=== PATIENT | female | born 1930 | race Caucasian/White ===

== ENCOUNTER 2017-01-09 20:52 | Inpatient (IN) | payer OTHER ==
[~2017-01-09] VITALS: Ht 162.6 cm; Wt 72.6 kg
[~2017-01-09 20:52] MED LIST: ACET-3783 PO; ALEN70TA PO; AMLO5TAB PO; ASPI81TA28 PO; ATOR10TA PO; CALC-567 PO; CLOP75TA PO; CRAN450C PO; DEXT1CAP3 PO; DIT5 PO; DIVA250T PO; DOCU100C5 PO; DONE5TAB2 PO; GABA100C PO; HYDR-3638 PO; LEVO500T6 PO; LISI-420 PO; MAGN400T11 PO; MECL-272 PO; MULT-1398 PO; NITR0.4S14 SL; SACC250C4 PO; SERT50TA PO; VITA20002 PO
--- NOTE | 2017-01-09 20:52 | NUR ---
BIBA TO ER BED 4
--- NOTE | 2017-01-09 21:00 | NUR ---
Patient being evaluated by DR. SEO at bedside.
--- NOTE | 2017-01-09 21:01 | NUR ---
86Y/F PT. BIBA C/O DOUBLE VISION, SINCE YESTERDAY, S/P HIT HER HEAD ON THE EDGE OF THE BED , ON HER LEFT SIDE HEAD. HX. HTN, DEMENTIA, GERD. AAO X3, UNABLE TO AMBULATE AT THIS TIME. RESPIRATION ROOM AIR, EVEN AND UNLABORED. SKIN WARM AND DRY TO TOUCH. C/O DOUBLE VISION AND LT. EYELID HEAVY. VSS, NO S/SX OF DISTRESS AT THIS TIME. BED AT LOW POSITION. DR. SEO AT BEDSIDE EVALUATING PT.
[2017-01-09 21:02] VITALS: BP 126/68
[2017-01-09 21:37] LABS: BASOPHILS # (AUTO) 0.1 K/uL (0.00-0.22); EOSINOPHILS # (AUTO) 0.3 K/uL (0-0.4); EOSINOPHILS % (AUTO) 4.2 % (0.0-4.0); HEMATOCRIT 32.3 % (36-48); HEMOGLOBIN 10.6 g/dL (12.0-16.0); LYMPHOCYTES # (AUTO) 1.5 K/uL (2.5-16.5); LYMPHOCYTES % (AUTO) 24.9 % (20.5-51.1); MEAN CORPUSCULAR HEMOGLOBIN 31 pg (27-31); MEAN CORPUSCULAR HGB CONC 33 g/dL (33-37); MEAN CORPUSCULAR VOLUME 94 fL (80-94); MONOCYTES # (AUTO) 0.4 K/uL (0.8-1.0); MONOCYTES % (AUTO) 6.4 % (1.7-9.3); NEUTROPHILS # (AUTO) 3.9 K/uL (1.8-7.7); NEUTROPHILS % (AUTO) 63.5 % (42.2-75.2); PLATELET COUNT (AUTO) 200 K/uL (140-450); RED BLOOD CELL COUNT(AUTO) 3.44 MIL/uL (4.20-5.40); RED CELL DISTRIBUTION WIDTH 13.1 % (11.6-13.7); WHITE BLOOD COUNT (AUTO) 6.2 K/uL (4.8-10.8)
[2017-01-09 21:46] LABS: ANION GAP 9.5 (8-16); CALCIUM 9.4 mg/dL (8.5-10.1); CARBON DIOXIDE 31.3 mmol/L (21-32); CHLORIDE 104 mmol/L (98-107); CREATININE 1.5 mg/dL (0.6-1.3); GLUCOSE 161 mg/dL (74-106); POTASSIUM 4.8 mmol/L (3.5-5.1); SODIUM SERUM 140 mmol/L (136-145); UREA NITROGEN, BLOOD 27 mg/dL (7-18)
[2017-01-09 21:51] LABS: ALANINE AMINOTRANSFERASE 20 U/L (12-78); ALBUMIN 3.8 g/dL (3.4-5.0); ALKALINE PHOSPHATASE 68 U/L (46-116); ASPARTATE AMINOTRANSFERASE 21 U/L (15-37); TOTAL BILIRUBIN 0.3 mg/dL (0.0-1.0); TOTAL PROTEIN, SERUM 6.9 g/dL (6.4-8.2)
[2017-01-09 21:54] LABS: INR 1.1 (0.8-1.2); PARTIAL THROMBOPLASTIN TIME 24.2 secs (22-35.6)
[2017-01-09 21:59] LABS: FREE T4 (FREE THYROXINE) 0.73 ng/dL (0.76-1.46); THYROID STIMULATING HORMONE 0.74 uIU/mL (0.34-3.76)
--- NOTE | 2017-01-09 22:15 | NUR ---
TAKE PT. TO CT
[2017-01-09] MEDS ORDERED: MELO7.5T11 PO (22:40)
[2017-01-09] MEDS ORDERED: FERR325E14 PO (22:40)
[2017-01-09] MEDS ORDERED: LACT1CAP71 PO (22:40)
[2017-01-09] MEDS ORDERED: FURO-572 PO (22:40)
[2017-01-09] MEDS ORDERED: POTA8TER12 PO (22:40)
--- NOTE | 2017-01-09 22:40 | NUR ---
PT. BACK FROM CT
[2017-01-09] MEDS ORDERED: ASPIRIN 325 MG TAB PO ONE (22:45)
[2017-01-09 22:53] LABS: APPEARANCE,URINE CLOUDY (CLEAR); BILIRUBIN,URINE NEGATIVE (NEGATIVE); BLOOD, URINE NEGATIVE (NEGATIVE); COLOR,URINE YELLOW (YELLOW); LEUKOCYTE ESTERASE ,URINE 1+ (NEGATIVE); NITRITE, URINE POSITIVE (NEGATIVE); PROTEIN,URINE NEGATIVE (NEGATIVE); UGLUCOSE NEGATIVE (NEGATIVE); UROBILINOGEN,URINE 0.2 EU/dL (0.2 - 1)
[2017-01-09] MEDS ORDERED: cefTRIAXone 1,000 MG VIAL ONE (22:57)
[2017-01-09 23:12] LABS: BACTERIA,URINE 4+ /HPF (None Seen); RBC,URINE 0-5 (RARE) /HPF (0-5); SQUAMOUS EPITHELIAL CELL,UR None Seen /LPF (0-3 (FEW)); WHITE BLOOD CELL CASTS,URINE 0-3 /LPF (None Seen)
--- NOTE | 2017-01-09 23:18 | NUR ---
Note undone in EDM - 01/09/17 at 2321 by MEDSP 86Y/F PT. BIBA C/O DOUBLE VISION, SINCE YESTERDAY, S/P HIT HER HEAD ON THE EDGE OF THE BED , ON HER LEFT SIDE HEAD. HX. HTN, DEMENTIA, GERD. AAO X3, UNABLE TO AMBULATE AT THIS TIME. RESPIRATION ROOM AIR, EVEN AND UNLABORED. SKIN WARM AND DRY TO TOUCH. C/O DOUBLE VISION AND LT. EYELID HEAVY. VSS, NO S/SX OF DISTRESS AT THIS TIME. BED AT LOW POSITION. DR. SEO AT BEDSIDE EVALUATING PT.
--- NOTE | 2017-01-09 23:22 | NUR ---
Patient appears to be resting comfortably in bed. Vital Signs within normal limits. Respirations even and unlabored.
[2017-01-09] MEDS ORDERED: NACL 0.9% 1,000 ML IV SCH (23:26)
[2017-01-09 23:29] LABS: LACTIC ACID 1.1 mmol/L (0.4-2.0)
[2017-01-09] MEDS ORDERED: ONDANSETRON 4 MG/2 ML VIAL IM/IVP PRN (23:30)
[2017-01-09] MEDS ORDERED: ACETAMINOPHEN 325 MG TAB PO PRN (23:30)
[2017-01-09] MEDS ORDERED: HYDROcodone/APAP 7.5/325 MG 1 TAB PO PRN (23:30)
[2017-01-09] MEDS ORDERED: DOCUSATE SODIUM 100 MG GELCAP PO PRN (23:30)
[2017-01-09] MEDS ORDERED: MORPHINE SULFATE 2 MG/ML SYR IVP PRN (23:30)
--- NOTE | 2017-01-09 23:55 | NUR ---
Patient will be admitted to care of . Admited to TELEMETRY. Will go to [id number]. Belongings list completed. Report to ROBERT DIAS.
--- NOTE | 2017-01-10 00:10 | NUR ---
Admitted from ED, with chief complaint of DOUBLE VISION, 86 y/o ,Female, Awake, Alert, and Orientedx2-3, Cooperative. Granddaughter at bedside. Pt have bowel movement. Komal care rendered. Pt repositioned for comfort. Initial assessment done. Pt is hard of hearing. Vital signs checked. Pt oriented to call light, bed, phone,television, bathroom, smoking policy, visiting hours, procedures, ID bracelet on. Belongings list checked. Safety reinforced. MRSA swab collected. Bed alarm on.
[2017-01-10 00:20] VITALS: BP 139/71
[2017-01-10 00:37] LABS: CHOL/HDL RATIO 4.3 (1-4.5); MAGNESIUM 1.5 mg/dL (1.8-2.4); PHOSPHORUS 4.1 mg/dL (2.5-4.9)
[2017-01-10 04:00] VITALS: BP 124/67
--- NOTE | 2017-01-10 04:00 | NUR ---
AWAKEN PT. VITAL SIGNS CHECKED. PT DENIES ANY PAIN. PT SAID SHE NEEDS TO BE CHANGED. PT HAD GREENISH, LOOSE STOOL. PERICARE RENDERED. PT REPOSITIONED FOR COMFORT. CALL LIGHT W/IN REACH.
--- NOTE | 2017-01-10 05:15 | NUR ---
PT CALLED SAYING SHE NEEDS TO BE CHANGED. DUC CARE RENDERED. PT GOT UPSET FROM BEING CLEANED. EXPLAINED THAT SHE NEEDS TO BE CLEANED AND SHE'S THE ONE WHO CALLED TO BE CLEAN TOO. PT STATES " I'LL TELL MY DAUGHTER TO TAKE ME OUT HERE." ASKED PT HOW COME? PT STATES, " BECAUSE I CAME BECAUSE OF MY LEFT EYE AND THEN I KEEP ON URINATING SO MUCH." INFORMED HER THAT SHE HAS IVF GOING AND THAT SHE HAS UTI WELL. PT STILL UPSET. PT REASSURED THAT IT WILL GET BETTER BECAUSE SHE HAS IV ANTIBIOTIC NOW. PT REFUSED SEQUENTIALS ON. PT LEGS REMAIN ELEVATED OVER PILLOW. BED ALARM TURNED ON. CALL LIGHT W/IN REACH.
[2017-01-10] MEDS ORDERED: SODIUM PHOS / POTASSIUM PHOS 1 PKT PDR PO ONE (06:45)
--- NOTE | 2017-01-10 07:20 | NUR ---
BEDSIDE REPORT GIVEN TO DAYSHIFT NURSE.
--- NOTE | 2017-01-10 07:21 | NUR ---
RECEIVED REPORT OF PT FROM UNIX ENGINEER NURSE AT BEDSIDE. PT IS A&OX3. PT REFUSED VS AT THIS TIME. PT STATED THAT SHE WANTS TO GO HOME. PT HAS IV ON L AC 18 G RUNNING NS @ 60ML/HR. CALL LIGHT WITHIN REACH. WILL CONTINUE TO MONITOR.
[2017-01-10] MEDS: NACL 0.9% 1,000 ML IV SCH ×2 (08:11→16:38)
[2017-01-10] MEDS ORDERED: MORPHINE SULFATE 2 MG/ML SYR IVP PRN (08:15)
[2017-01-10] MEDS ORDERED: HYDROcodone/APAP 7.5/325 MG 1 TAB PO PRN (08:15)
[2017-01-10] MEDS ORDERED: DOCUSATE SODIUM 100 MG GELCAP PO PRN (08:15)
[2017-01-10] MEDS ORDERED: ACETAMINOPHEN 325 MG TAB PO PRN (08:15)
[2017-01-10] MEDS ORDERED: ONDANSETRON 4 MG/2 ML VIAL IM/IVP PRN (08:15)
--- NOTE | 2017-01-10 08:34 | NUR ---
PATIENT HAS BEEN SCREENED AND CATEGORIZED MODERATE NUTRITION RISK. PATIENT WILL BE SEEN WITHIN 3-5 DAYS OF ADMISSION. 01/12/17-01/14/[address]
[2017-01-10] MEDS ORDERED: LACTOBACILLUS RHAMNOSUS GG 1 EACH CAP PO SCH (09:00)
[2017-01-10] MEDS: LACTOBACILLUS RHAMNOSUS GG 1 EACH CAP PO SCH (09:17)
--- NOTE | 2017-01-10 09:30 | NUR ---
PT VOIDED AND HAD A SMALL LOOSE BM IN BED. CLEANED AND CHANGED PT. PT TOLERATED WELL. PT REFUSED ALL MEDS. WILL REPORT TO DR. PT CALLED DAUGHTER ON THE PHONE. CALL LIGHT WITHIN REACH. WILL CONTINUE TO MONITOR.
--- NOTE | 2017-01-10 11:30 | NUR ---
DR EXAMINED PT IN ROOM AND EXPLAINED PLAN OF CARE TO FAMILY.
[2017-01-10 11:56] LABS: ANION GAP 12.4 (8-16); BASOPHILS # (AUTO) 0.1 K/uL (0.00-0.22); BASOPHILS % (AUTO) 1.6 % (0.0-2.0); CALCIUM 9.7 mg/dL (8.5-10.1); CARBON DIOXIDE 28.4 mmol/L (21-32); CHLORIDE 106 mmol/L (98-107); CREATININE 1.2 mg/dL (0.6-1.3); EOSINOPHILS # (AUTO) 0.2 K/uL (0-0.4); EOSINOPHILS % (AUTO) 2.7 % (0.0-4.0); GLUCOSE 134 mg/dL (74-106); HEMATOCRIT 37.1 % (36-48); HEMOGLOBIN 12.3 g/dL (12.0-16.0); LYMPHOCYTES # (AUTO) 1.2 K/uL (2.5-16.5); LYMPHOCYTES % (AUTO) 16.1 % (20.5-51.1); MEAN CORPUSCULAR HEMOGLOBIN 31 pg (27-31); MEAN CORPUSCULAR HGB CONC 33 g/dL (33-37); MEAN CORPUSCULAR VOLUME 94 fL (80-94); MONOCYTES # (AUTO) 0.3 K/uL (0.8-1.0); MONOCYTES % (AUTO) 4.3 % (1.7-9.3); NEUTROPHILS # (AUTO) 5.7 K/uL (1.8-7.7); NEUTROPHILS % (AUTO) 75.3 % (42.2-75.2); PLATELET COUNT (AUTO) 211 K/uL (140-450); POTASSIUM 4.8 mmol/L (3.5-5.1); RED BLOOD CELL COUNT(AUTO) 3.96 MIL/uL (4.20-5.40); RED CELL DISTRIBUTION WIDTH 13.3 % (11.6-13.7); SODIUM SERUM 142 mmol/L (136-145); UREA NITROGEN, BLOOD 22 mg/dL (7-18); WHITE BLOOD COUNT (AUTO) 7.5 K/uL (4.8-10.8)
[2017-01-10 12:00] VITALS: BP 152/80
[2017-01-10 12:01] LABS: INR 1.1 (0.8-1.2); PARTIAL THROMBOPLASTIN TIME 25.8 secs (22-35.6); PROTHROMBIN TIME 11.2 secs (10.8-13.4)
[2017-01-10] MEDS ORDERED: NON-FORMULARY ITEM (Oxycodone HCl/Acetaminophen (Percocet 10-325 mg Tablet) 1 TAB) PO PRN (12:10)
[2017-01-10] MEDS ORDERED: MECLIZINE 25 MG TAB PO PRN (12:10)
[2017-01-10] MEDS ORDERED: NITROGLYCERIN 0.4 MG SL PRN (12:10)
[2017-01-10 12:13] LABS: CHOL/HDL RATIO 3.9 (1-4.5); FREE T4 (FREE THYROXINE) 0.76 ng/dL (0.76-1.46); MAGNESIUM 1.6 mg/dL (1.8-2.4); PHOSPHORUS 3.6 mg/dL (2.5-4.9); THYROID STIMULATING HORMONE 0.65 uIU/mL (0.34-3.76)
[2017-01-10] MEDS ORDERED: NITROGLYCERIN 0.4 MG TAB SL PRN (12:35)
[2017-01-10] MEDS ORDERED: oxyCODONE/APAP 5/325 MG 1 TAB TAB PO PRN (13:25)
--- NOTE | 2017-01-10 13:30 | NUR ---
U/S TECH AT BEDSIDE PERFORMING U/S.
[2017-01-10] MEDS: GABAPENTIN 100 MG CAP PO SCH ×2 (13:59→16:37)
[2017-01-10] MEDS: hydrALAZINE 25 MG TAB PO SCH (13:59)
--- NOTE | 2017-01-10 15:48 | NUR ---
PT VOIDED. CLEANED AND CHANGED PT. PT TOLERATED WELL. CALL LIGHT WITHIN REACH. WILL CONTINUE TO MONITOR.
[2017-01-10 16:00] VITALS: BP 156/78
[2017-01-10] MEDS ORDERED: NON-FORMULARY ITEM (Saccharomyces Boulardii* (Florastor*) 250 MG) PO SCH (17:00)
--- NOTE | 2017-01-10 17:10 | NUR ---
SPOKE TO DR. FRAGOSO REGARDING PT'S MAG LEVEL OF 1.6.
[2017-01-10] MEDS ORDERED: MAGNESIUM OXIDE 400 MG TAB PO SCH (17:30)
--- NOTE | 2017-01-10 19:18 | NUR ---
ENDORSED PT TO SALVAGE INSPECTOR WOOD PARTS NURSE AT BEDSIDE. PT IN STABLE CONDITION.
--- NOTE | 2017-01-10 19:35 | NUR ---
RECEIVED REPORT FROM DAY SHIFT RN AT BEDSIDE. INITIAL ASSESSMENT COMPLETED. PT AAO3; CONFUSED AT TIMES. PT HAS IV ON LEFT FOREARM G 18; INFUSING FLUIDS WELL. PT HAS RIGHT THIGH RASH. PT HAS SCDS. PT ON ROOM AIR. SAFETY/FALL RISK MEASURES IN PLACE. BED ALARM ON. WILL CONTINUE TO MONITOR PT.
[2017-01-10 20:00] VITALS: BP 148/84
[2017-01-10] MEDS ORDERED: LISINOPRIL 20 MG TAB PO SCH (21:00)
[2017-01-10] MEDS ORDERED: NON-FORMULARY ITEM (Divalproex Sodium* (Depakote Er (Extended Release)*) 250 MG) PO SCH (21:00)
[2017-01-10] MEDS ORDERED: NON-FORMULARY ITEM (Dextromethorphan HBr/Quinidine (Nuedexta 20-10 mg Capsule) 1 CAP) PO SCH (21:00)
[2017-01-10] MEDS: DIVALPROEX 250 MG TABEC PO SCH (22:05)
[2017-01-10] MEDS: CLOPIDOGREL 75 MG TAB PO SCH (22:06)
[2017-01-10] MEDS: DONEPEZIL 10 MG TAB PO SCH (22:06)
[2017-01-10] MEDS: ATORVASTATIN 20 MG TAB PO SCH (22:07)
[2017-01-10] MEDS: FERROUS SULFATE 325 MG TABEC PO SCH (22:07)
[2017-01-10] MEDS: CELECOXIB 100 MG CAP PO SCH (22:07)
--- NOTE | 2017-01-10 22:19 | NUR ---
PT TOLERATED 2100 MEDS WELL. WILL CONTINUE TO MONITOR PT.
--- NOTE | 2017-01-10 23:24 | NUR ---
PT HAD A BM, PT CLEANED AND REPOSITIONED. LINEN CHANGED, PT STABLE AT THIS TIME. WILL CONTINUE TO MONITOR PT.
[2017-01-11] VITALS: BP 124/81
--- NOTE | 2017-01-11 02:13 | NUR ---
IV PUMP ALARMING, FLUSHED AND INFUSING FLUIDS WELL. PT STABLE, NO SIGNS OF DISTRESS NOTED. WILL CONTINUE TO MONITOR PT.
[2017-01-11 04:00] VITALS: BP 145/82
--- NOTE | 2017-01-11 04:05 | NUR ---
PT WAS WET. PT CLEANED, LINEN AND GOWN CHANGED. PT TOLERATED IT WELL. BED ALARM ON. WILL CONTINUE TO MONITOR PT.
--- NOTE | 2017-01-11 06:05 | NUR ---
PT ASKING FOR A BLANKET. SHE STATES SHE IS COLD, WILL PROVIDE HER WITH A BLANKET.
[2017-01-11 06:36] LABS: BASOPHILS % (AUTO) 0.5 % (0.0-2.0); EOSINOPHILS # (AUTO) 0.2 K/uL (0-0.4); EOSINOPHILS % (AUTO) 1.8 % (0.0-4.0); HEMATOCRIT 34.6 % (36-48); HEMOGLOBIN 11.5 g/dL (12.0-16.0); LYMPHOCYTES # (AUTO) 1.5 K/uL (2.5-16.5); LYMPHOCYTES % (AUTO) 18.2 % (20.5-51.1); MEAN CORPUSCULAR HEMOGLOBIN 31 pg (27-31); MEAN CORPUSCULAR HGB CONC 33 g/dL (33-37); MEAN CORPUSCULAR VOLUME 94 fL (80-94); MONOCYTES # (AUTO) 0.5 K/uL (0.8-1.0); MONOCYTES % (AUTO) 5.7 % (1.7-9.3); NEUTROPHILS # (AUTO) 6.3 K/uL (1.8-7.7); NEUTROPHILS % (AUTO) 73.8 % (42.2-75.2); PLATELET COUNT (AUTO) 204 K/uL (140-450); RED CELL DISTRIBUTION WIDTH 12.8 % (11.6-13.7); WHITE BLOOD COUNT (AUTO) 8.5 K/uL (4.8-10.8)
[2017-01-11 06:51] LABS: ANION GAP 12.9 (8-16); CALCIUM 9.7 mg/dL (8.5-10.1); CARBON DIOXIDE 26.2 mmol/L (21-32); CHLORIDE 107 mmol/L (98-107); CREATININE 1.1 mg/dL (0.6-1.3); GLUCOSE 135 mg/dL (74-106); POTASSIUM 4.1 mmol/L (3.5-5.1); SODIUM SERUM 142 mmol/L (136-145); UREA NITROGEN, BLOOD 19 mg/dL (7-18)
[2017-01-11 06:52] LABS: MAGNESIUM 1.6 mg/dL (1.8-2.4); PHOSPHORUS 2.7 mg/dL (2.5-4.9)
--- NOTE | 2017-01-11 07:35 | NUR ---
ENDORSED PLAN OF CARE TO DAY SHIFT NURSE, PT IN STABLE CONDITION.
[2017-01-11 08:00] VITALS: BP 156/73
[2017-01-11] MEDS: CHOLECALCIFEROL 1,000 IU TAB PO SCH (08:26)
[2017-01-11] MEDS: DIVALPROEX 250 MG TABEC PO SCH ×2 (08:26→21:17)
[2017-01-11] MEDS: ECOTRIN 81 MG TABEC PO SCH (08:27)
[2017-01-11] MEDS: OXYBUTYNIN 5 MG TAB PO SCH ×2 (08:27→21:19)
[2017-01-11] MEDS: MULTIVITAMIN 1 TAB PO SCH (08:27)
[2017-01-11] MEDS: amLODIPine 5 MG TAB PO SCH (08:27)
[2017-01-11] MEDS: CELECOXIB 100 MG CAP PO SCH ×2 (08:27→21:18)
[2017-01-11] MEDS: MAGNESIUM OXIDE 400 MG TAB PO SCH (08:28)
[2017-01-11] MEDS: SERTRALINE 50 MG TAB PO SCH (08:28)
[2017-01-11] MEDS: GABAPENTIN 100 MG CAP PO SCH ×3 (08:28→16:37)
[2017-01-11] MEDS: CALCIUM CARB/VIT-D 500 MG/200 IU 1 TAB PO SCH (08:28)
[2017-01-11] MEDS: FERROUS SULFATE 325 MG TABEC PO SCH ×2 (08:28→21:18)
[2017-01-11] MEDS: FUROSEMIDE 20 MG TAB PO SCH (08:29)
[2017-01-11] MEDS: LACTOBACILLUS RHAMNOSUS GG 1 EACH CAP PO SCH (08:29)
[2017-01-11] MEDS ORDERED: NON-FORMULARY ITEM (Calcium Carbonate/Vitamin D3 (Oyster Shell Calcium-Vit D Tab) 1 TAB) PO SCH (09:00)
[2017-01-11] MEDS ORDERED: NON-FORMULARY ITEM (Cholecalciferol (Vitamin D3) (Vitamin D3) 2,000 IU) PO SCH (09:00)
[2017-01-11] MEDS ORDERED: LACTOBACILLUS COMBINATION NO 4 PO SCH (09:00)
[2017-01-11] MEDS ORDERED: NON-FORMULARY ITEM (Meloxicam* (Mobic*) 1 TAB) PO SCH (09:00)
[2017-01-11] MEDS ORDERED: NON-FORMULARY ITEM (Cranberry Fruit Concentrate (Cranberry) 450 MG) PO SCH (09:00)
[2017-01-11] MEDS ORDERED: POTASSIUM CHLORIDE 8 MEQ TABER PO SCH (09:00)
[2017-01-11] MEDS ORDERED: [UNRECOGNIZED DRUG - OTHER] PO SCH (09:00)
[2017-01-11] MEDS ORDERED: OXYBUTYNIN 5 MG TAB PO SCH (09:00)
--- NOTE | 2017-01-11 10:19 | NUR ---
TALKED TO DR REGARDING PT'S FREQUENT VOID AND BM, AND BLANCHABLE RED SACRAL AREA AND LOW MAG LEVEL OF 1.6. DR WILL PUT IN ORDERS.
[2017-01-11] MEDS ORDERED: Z-GUARD PASTE TP ONE (11:25)
--- NOTE | 2017-01-11 11:49 | NUR ---
FAMILY AT BEDSIDE. PT IS SITTING UP IN BED. NO COMPLAINTS. CALL LIGHT WITHIN REACH. WILL CONTINUE TO MONITOR.
[2017-01-11 12:00] VITALS: BP 144/87
[2017-01-11] MEDS ORDERED: MAG SULF 2000 MG/WATER PREMIX 50 ML IV SCH (12:00)
[2017-01-11] MEDS: hydrALAZINE 25 MG TAB PO SCH (12:09)
--- NOTE | 2017-01-11 13:00 | NUR ---
PT SAT UP IN BED TO EAT. FED HERSELF. TOLERATED WELL. CALL LIGHT WITHIN REACH. WILL CONTINUE TO MONITOR.
--- NOTE | 2017-01-11 14:00 | NUR ---
PT IS SLEEPING IN BED. NO DISTRESS NOTED. CALL LIGHT WITHIN REACH. WILL CONTINUE TO MONITOR.
[2017-01-11] MEDS: Z-GUARD PASTE TP SCH ×2 (14:58→16:52)
[2017-01-11 16:00] VITALS: BP 156/69
--- NOTE | 2017-01-11 16:30 | NUR ---
PT VOIDED AND HAD BM IN BED. CLEANED AND CHANGED AND REPOSITIONED PT. PT TOLERATED WELL. CALL LIGHT WITHIN REACH. WILL CONTINUE TO MONITOR.
--- NOTE | 2017-01-11 17:30 | NUR ---
HELPED PT MAKE PHONE CALL TO DAUGHTER.
[2017-01-11] MEDS: NACL 0.9% 1,000 ML IV SCH (17:31)
--- NOTE | 2017-01-11 18:20 | NUR ---
PT SAT UP IN BED AND ATE DINNER. TOLERATED WELL. CALL LIGHT WITHIN REACH. WILL CONTINUE TO MONITOR.
--- NOTE | 2017-01-11 18:48 | NUR ---
U/S TECH AT BEDSIDE PERFORMING ECHO. PT TOLERATING WELL. WILL CONTINUE TO MONITOR.
--- NOTE | 2017-01-11 19:25 | NUR ---
ENDORSED CARE OF PT TO ANIMAL SCIENCE INSTRUCTOR NURSE AT BEDSIDE. PT IN STABLE CONDITION.
--- NOTE | 2017-01-11 19:30 | NUR ---
RECEIVED REPORT FROM LAN JONES AT BEDSIDE. PT IS ALERT, AWAKE ORIENTED X3 WITH PERIOD OF CONFUSION. INITIAL ASSESSMENT DONE. NO S/S OF RESPIRATORY DISTRESS OR SOB NOTED. NO C/O PAIN OR ANY DISCOMFORT AT THIS TIME. PLAN OF CARE REVIEWED TO PT AND VERBALIZED UNDERSTANDING AND NEED TO BE REINFORCED. CALL LIGHT WITHIN REACH. WILL CONTINUE TO MONITOR.
[2017-01-11 20:00] VITALS: BP 146/83
--- NOTE | 2017-01-11 20:30 | NUR ---
PLAN OF CARE ENDORSED TO PJ FOR CONTINUITY OF CARE
[2017-01-11] MEDS: ATORVASTATIN 20 MG TAB PO SCH (21:18)
[2017-01-11] MEDS: CLOPIDOGREL 75 MG TAB PO SCH (21:18)
[2017-01-11] MEDS: DONEPEZIL 10 MG TAB PO SCH (21:19)
[2017-01-11] MEDS: LISINOPRIL 20 MG TAB PO SCH (21:19)
--- NOTE | 2017-01-11 22:34 | NUR ---
PT. ASSISTED TO BEDPAN USE. PT. ABLE TO TURN SIDE TO SIDE. ABLE TO VERBALIZE NEEDS WELL. NO SOB. DENIES PAIN AT THIS TIME. CALL LIGHT WITH IN REACH. KEPT CLEAN, COMFORTABLE AND DRY. TELEMETRY MONITORING.
[2017-01-12 00:39] VITALS: BP 141/73
--- NOTE | 2017-01-12 00:54 | NUR ---
PT. CHANGED RT WET WITH URINE. CLEANED UP AND CHANGED BEDDINGS. DENIES PAIN. VERBALIZES NEEDS WELL. TELEMETRY MONITORING. ABLE TO USE CALL LIGHT FOR HELP.
--- NOTE | 2017-01-12 03:00 | NUR ---
PT. SLEEPING WELL. NEW IVF SITE INSERTED TO RIGHT HAND #24 RT OLD IVF SITE INFILTRATED. GOOD BLOOD RETURN. NEEDS ANTICIPATED AND MET. CALL LIGHT WITH IN REACH.
[2017-01-12 03:38] VITALS: BP 141/73
--- NOTE | 2017-01-12 05:42 | NUR ---
PT. NEEDS ATTENDED TO AND MET. TOTAL CARE. INCONTINENT. PT. ABLE TO VERBALIZE NEEDS WELL. ABLE TO USE CALL LIGHT FOR HELP. WITH FORGETFULNESS AT TIMES.
[2017-01-12 06:02] LABS: BASOPHILS # (AUTO) 0.1 K/uL (0.00-0.22); BASOPHILS % (AUTO) 1.2 % (0.0-2.0); EOSINOPHILS # (AUTO) 0.2 K/uL (0-0.4); EOSINOPHILS % (AUTO) 2.6 % (0.0-4.0); HEMATOCRIT 35.2 % (36-48); HEMOGLOBIN 11.5 g/dL (12.0-16.0); LYMPHOCYTES # (AUTO) 1.8 K/uL (2.5-16.5); LYMPHOCYTES % (AUTO) 19.5 % (20.5-51.1); MEAN CORPUSCULAR HEMOGLOBIN 31 pg (27-31); MEAN CORPUSCULAR HGB CONC 33 g/dL (33-37); MEAN CORPUSCULAR VOLUME 94 fL (80-94); MONOCYTES # (AUTO) 0.6 K/uL (0.8-1.0); MONOCYTES % (AUTO) 6.3 % (1.7-9.3); NEUTROPHILS # (AUTO) 6.3 K/uL (1.8-7.7); NEUTROPHILS % (AUTO) 70.4 % (42.2-75.2); PLATELET COUNT (AUTO) 215 K/uL (140-450); RED BLOOD CELL COUNT(AUTO) 3.74 MIL/uL (4.20-5.40)
[2017-01-12 06:34] LABS: ANION GAP 12.4 (8-16); CALCIUM 9.5 mg/dL (8.5-10.1); CARBON DIOXIDE 27.5 mmol/L (21-32); CHLORIDE 105 mmol/L (98-107); GLUCOSE 131 mg/dL (74-106); POTASSIUM 3.9 mmol/L (3.5-5.1); SODIUM SERUM 141 mmol/L (136-145); UREA NITROGEN, BLOOD 20 mg/dL (7-18)
[2017-01-12 06:35] LABS: MAGNESIUM 1.8 mg/dL (1.8-2.4)
--- NOTE | 2017-01-12 07:20 | NUR ---
RECEIVED PT FROM IT SOFTWARE ENGINEER NURSE AT BEDSIDE. PT IS A&OX3. PT HAS IV ON L HAND 24 G RUNNING NS@60ML/HR. SCDS ON. NO OTHER COMPLAINTS AT THIS TIME. CALL LIGHT WITHIN REACH. WILL CONTINUE TO MONITOR.
[2017-01-12 08:00] VITALS: BP 148/67
[2017-01-12] MEDS: CHOLECALCIFEROL 1,000 IU TAB PO SCH (08:12)
[2017-01-12] MEDS: MULTIVITAMIN 1 TAB PO SCH (08:12)
[2017-01-12] MEDS: LACTOBACILLUS RHAMNOSUS GG 1 EACH CAP PO SCH (08:12)
[2017-01-12] MEDS: FERROUS SULFATE 325 MG TABEC PO SCH ×2 (08:12→21:13)
[2017-01-12] MEDS: LISINOPRIL 20 MG TAB PO SCH ×2 (08:13→21:13)
[2017-01-12] MEDS: GABAPENTIN 100 MG CAP PO SCH ×3 (08:13→16:48)
[2017-01-12] MEDS: DIVALPROEX 250 MG TABEC PO SCH ×2 (08:13→21:14)
[2017-01-12] MEDS: CALCIUM CARB/VIT-D 500 MG/200 IU 1 TAB PO SCH (08:13)
[2017-01-12] MEDS: MAGNESIUM OXIDE 400 MG TAB PO SCH (08:13)
[2017-01-12] MEDS: amLODIPine 5 MG TAB PO SCH (08:14)
[2017-01-12] MEDS: ECOTRIN 81 MG TABEC PO SCH (08:14)
[2017-01-12] MEDS: FUROSEMIDE 20 MG TAB PO SCH (08:14)
[2017-01-12] MEDS: SERTRALINE 50 MG TAB PO SCH (08:14)
[2017-01-12] MEDS: CELECOXIB 100 MG CAP PO SCH ×2 (08:14→21:14)
[2017-01-12] MEDS: OXYBUTYNIN 5 MG TAB PO SCH ×2 (08:14→21:14)
--- NOTE | 2017-01-12 09:00 | NUR ---
PT HAD BM ON BEDPAN AND VOIDED. CLEANED AND CHANGED PT. REPOSITIONED PT. PT TOLERATED WELL. CALL LIGHT WITHIN REACH. WILL CONTINUE TO MONITOR.
[2017-01-12] MEDS: Z-GUARD PASTE TP SCH ×3 (09:25→17:07)
[2017-01-12] MEDS: NACL 0.9% 1,000 ML IV SCH (10:11)
--- NOTE | 2017-01-12 10:24 | NUR ---
Social Service Note: Per patient's nurse RN Edinson Hernandez, she was informed by patient will not be discharged today. I faxed patient's medical information to [facility].
--- NOTE | 2017-01-12 11:20 | NUR ---
PT IS RESTING IN BED. NO COMPLAINTS AT THIS TIME. CALL LIGHT WITHIN REACH. WILL CONTINUE TO MONITOR.
[2017-01-12 12:00] VITALS: BP 130/80
[2017-01-12] MEDS: hydrALAZINE 25 MG TAB PO SCH (12:42)
--- NOTE | 2017-01-12 13:24 | NUR ---
Social Service Note: I received a phone call from patient's daughter Erna. Per Erna, she would like patient to return to [facility] once patient is medically clear.
--- NOTE | 2017-01-12 13:40 | NUR ---
STUDENT NURSE CHATTING WITH PT IN ROOM. PT HAS NO COMPLAINTS AT THIS TIME. CALL LIGHT WITHIN REACH. WILL CONTINUE TO MONITOR.
--- NOTE | 2017-01-12 14:50 | NUR ---
ANSWERED DAUGHTER'S QUESTIONS. DAUGHTER AND GRANDDAUGHTER AT BEDSIDE. NO COMPLAINTS AT THIS TIME. CALL LIGHT WITHIN REACH. WILL CONTINUE TO MONITOR.
[2017-01-12 16:00] VITALS: BP 152/81
--- NOTE | 2017-01-12 16:50 | NUR ---
FAMILY AT BEDSIDE. PT IS TALKING AND APPEARS TO BE IN NO DISTRESS. TOOK AFTERNOON MED. TOLERATED WELL. CALL LIGHT WITHIN REACH. WILL CONTINUE TO MONITOR.
--- NOTE | 2017-01-12 17:32 | NUR ---
PT VOIDED. CLEANED AND CHANGED PT. PT TOLERATED WELL. CALL LIGHT WITHIN REACH. WILL CONTINUE TO MONITOR.
--- NOTE | 2017-01-12 19:26 | NUR ---
ENDORSED CARE TO RECORDER OF DEEDS NURSE AT BEDSIDE. PT IN STABLE CONDITION.
--- NOTE | 2017-01-12 19:27 | NUR ---
RECEIVED FROM AM RN IN BED. SURGICAL SUPERVISOR WITH HER AND CLEANING HER UP. BEDDING CHANGED RT URINATED IN BED. PT. WITH OCCASIONALLY INCONTINENCE. NEEDS ARE ANTICIPATED AND MET. BED ALARM ON . CARE PLAN FOR THE NIGHT EXPLAINED TO HER. TELEMETRY MONITORING.
[2017-01-12 21:10] VITALS: BP 154/68
[2017-01-12] MEDS: DONEPEZIL 10 MG TAB PO SCH (21:13)
[2017-01-12] MEDS: CLOPIDOGREL 75 MG TAB PO SCH (21:13)
[2017-01-12] MEDS: ATORVASTATIN 20 MG TAB PO SCH (21:13)
--- NOTE | 2017-01-12 22:00 | NUR ---
PT. USED CALL LIGHT AND ASKED TO USE BEDPAN . ABLE TO URINATE IN BEDPAN. KEPT CLEAN , DRY AND ENCOURGED TO TURN SIDE TO SIDE. "OK" ENCOURAGED TO GO BACK TO SLEEP. WATCHING TV AT THIS TIME STILL.
--- NOTE | 2017-01-13 | NUR ---
SLEEPING. WAKES UP EASILY WHEN TOUCHED. PT. CLEANED UP RT WET WITH URINE. WITH INCONTINENCE AT TIMES.
[2017-01-13 00:06] VITALS: BP 140/74
[2017-01-13] MEDS: NACL 0.9% 1,000 ML IV SCH ×2 (02:51→16:35)
--- NOTE | 2017-01-13 03:45 | NUR ---
MINIMUM CARE. TURNS SELF. ENCOURAGED TO TURN SIDE TO SIDE. SLEEPING WELL. NO RESTLESSNESS AND NO SOB.
[2017-01-13 04:00] VITALS: BP 119/74
[2017-01-13 05:54] LABS: BASOPHILS # (AUTO) 0.1 K/uL (0.00-0.22); BASOPHILS % (AUTO) 0.9 % (0.0-2.0); EOSINOPHILS # (AUTO) 0.2 K/uL (0-0.4); EOSINOPHILS % (AUTO) 2.7 % (0.0-4.0); HEMATOCRIT 32.7 % (36-48); HEMOGLOBIN 10.7 g/dL (12.0-16.0); LYMPHOCYTES # (AUTO) 1.9 K/uL (2.5-16.5); LYMPHOCYTES % (AUTO) 23.2 % (20.5-51.1); MEAN CORPUSCULAR HEMOGLOBIN 31 pg (27-31); MEAN CORPUSCULAR HGB CONC 33 g/dL (33-37); MEAN CORPUSCULAR VOLUME 93 fL (80-94); MONOCYTES # (AUTO) 0.6 K/uL (0.8-1.0); MONOCYTES % (AUTO) 6.8 % (1.7-9.3); NEUTROPHILS # (AUTO) 5.3 K/uL (1.8-7.7); NEUTROPHILS % (AUTO) 66.4 % (42.2-75.2); PLATELET COUNT (AUTO) 205 K/uL (140-450); RED BLOOD CELL COUNT(AUTO) 3.51 MIL/uL (4.20-5.40); RED CELL DISTRIBUTION WIDTH 12.9 % (11.6-13.7); WHITE BLOOD COUNT (AUTO) 8.1 K/uL (4.8-10.8)
[2017-01-13 06:43] LABS: ANION GAP 12.2 (8-16); CALCIUM 9.2 mg/dL (8.5-10.1); CHLORIDE 105 mmol/L (98-107); GLUCOSE 127 mg/dL (74-106); POTASSIUM 4.2 mmol/L (3.5-5.1); SODIUM SERUM 139 mmol/L (136-145); UREA NITROGEN, BLOOD 21 mg/dL (7-18)
--- NOTE | 2017-01-13 07:23 | NUR ---
PT. STILL SLEEPING. NEEDS ANTICIPATED AND MET. ENDORSED TO THE NEXT RN FOR CONTINUITY OF CARE. NO COMPLAINTS DONE. TELEMETRY MONITORING.
--- NOTE | 2017-01-13 07:24 | NUR ---
RECEIVED CARE OF PT FROM WATER VALVE REPAIRER NURSE AT BEDSIDE. PT IS A&OX3. PT HAS IV ON L HAND 24 G RUNNING NS 60ML/HR. SCDS ON. REINTRODUCED MYSELF AND UPDATED THE BOARD. PT HAS NO COMPLAINTS AT THIS TIME. CALL LIGHT WITHIN REACH. WILL CONTINUE TO MONITOR.
[2017-01-13 07:58] LABS: MAGNESIUM 1.7 mg/dL (1.8-2.4); PHOSPHORUS 3.1 mg/dL (2.5-4.9)
[2017-01-13 08:00] VITALS: BP 158/76
[2017-01-13] MEDS: CHOLECALCIFEROL 1,000 IU TAB PO SCH (09:02)
[2017-01-13] MEDS: FERROUS SULFATE 325 MG TABEC PO SCH ×2 (09:02→20:45)
[2017-01-13] MEDS: LACTOBACILLUS RHAMNOSUS GG 1 EACH CAP PO SCH (09:02)
[2017-01-13] MEDS: MULTIVITAMIN 1 TAB PO SCH (09:03)
[2017-01-13] MEDS: GABAPENTIN 100 MG CAP PO SCH ×3 (09:03→16:35)
[2017-01-13] MEDS: CALCIUM CARB/VIT-D 500 MG/200 IU 1 TAB PO SCH (09:03)
[2017-01-13] MEDS: amLODIPine 5 MG TAB PO SCH (09:03)
[2017-01-13] MEDS: CELECOXIB 100 MG CAP PO SCH ×2 (09:04→20:46)
[2017-01-13] MEDS: DIVALPROEX 250 MG TABEC PO SCH ×2 (09:04→21:31)
[2017-01-13] MEDS: LISINOPRIL 20 MG TAB PO SCH ×2 (09:04→20:46)
[2017-01-13] MEDS: OXYBUTYNIN 5 MG TAB PO SCH ×2 (09:04→20:47)
[2017-01-13] MEDS: ECOTRIN 81 MG TABEC PO SCH (09:04)
[2017-01-13] MEDS: FUROSEMIDE 20 MG TAB PO SCH (09:04)
[2017-01-13] MEDS: Z-GUARD PASTE TP SCH ×3 (09:05→17:00)
[2017-01-13] MEDS: MAGNESIUM OXIDE 400 MG TAB PO SCH (09:05)
[2017-01-13] MEDS: SERTRALINE 50 MG TAB PO SCH (09:05)
[2017-01-13 12:00] VITALS: BP 140/75
[2017-01-13] MEDS: hydrALAZINE 25 MG TAB PO SCH (12:35)
[2017-01-13 13:40] LABS: T4 (THYROXINE) 3.1 ug/dL (4.5 - 12.0)
--- NOTE | 2017-01-13 14:30 | NUR ---
SPOKE TO RESIDENT REGARDING PT'S MAG LEVEL. STATED IT IS NOT THAT LOW. WILL PUT IN ORDER. PT IS CURRENTLY ON SCHEDULE PO MAG.
--- NOTE | 2017-01-13 14:44 | NUR ---
SS NOTE: PER LIYAH FROM [facility] ([phone]), PT CAN GO TO ROOM 6B ANYTIME UPON DISCHARGE UNDER DR. ERICKSON
[2017-01-13 16:00] VITALS: BP 125/68
--- NOTE | 2017-01-13 16:00 | NUR ---
DAUGHTER AND GRANDDAUGHTER AT BEDSIDE. ANSWERED ALL QUESTIONS. CALL LIGHT WITHIN REACH. WILL CONTINUE TO MONITOR.
[2017-01-13] MEDS ORDERED: MAG SULF 2000 MG/WATER PREMIX 50 ML IV SCH (18:00)
--- NOTE | 2017-01-13 18:00 | NUR ---
PT SAT UP IN BED TO EAT DINNER. TOLERATED WELL. CALL LIGHT WITHIN REACH. WILL CONTINUE TO MONITOR.
--- NOTE | 2017-01-13 19:10 | NUR ---
ENDORSED CARE OF PT TO PROGRAM THERAPIST NURSE AT BEDSIDE. PT IN STABLE CONDITION.
--- NOTE | 2017-01-13 19:20 | NUR ---
RECEIVED REPORT FROM ROBERT THOMAS AT BEDSIDE. INITIAL ASSESSMENT COMPLETED. PT AAOX3, SOMETIMES SHOWS EPISODES OF CONFUSION. PT HAS IV ON LEFT HAND G 24 INFUSING FLUIDS WELL. PT HAS SACRAL REDNESS. PT HAS SCDS ON. DAUGHTER AT BEDSIDE. ORIENTED PT AND DAUGHTER TO ROOM AND SURROUNDINGS AND USE OF CALL LIGHT. EXPLAINED PLAN OF CARE TO PT AND DAUGHTER AND THEY VERBALIZED UNDERSTANDING. SAFETY/FALL RISK MEASURES IN PLACE, WILL CONTINUE TO MONITOR PT.
[2017-01-13 20:00] VITALS: BP 133/79
[2017-01-13] MEDS: CLOPIDOGREL 75 MG TAB PO SCH (20:46)
[2017-01-13] MEDS: ATORVASTATIN 20 MG TAB PO SCH (20:47)
[2017-01-13] MEDS: DONEPEZIL 10 MG TAB PO SCH (20:48)
--- NOTE | 2017-01-13 21:05 | NUR ---
REMOVED PT'S TELE MONITOR. PT IS NOW MED SURGE. WILL CONTINUE TO MONITOR PT.
--- NOTE | 2017-01-13 21:20 | NUR ---
PT TOLERATED 2100 MEDS WELL. MEDICATION GIVEN BY STUDENT ACCOMPANIED BY THE INSTRUCTOR.
--- NOTE | 2017-01-13 21:20 | NUR ---
PT AWAKE AT THIS TIME, PT STATING THAT SHE MISSES HER DAUGHTER TEMO. WILL CALL HER DAUGHTER PT REQUEST.
--- NOTE | 2017-01-13 21:27 | NUR ---
PT COMPLAINING OF ABDOMINAL PAIN 02/03. WILL MEDICATE ORDERED.
--- NOTE | 2017-01-13 22:00 | NUR ---
PT SLEEPING AT THIS TIME, NO SIGNS OF DISTRESS NOTED. WILL CONTINUE TO MONITOR PT.
--- NOTE | 2017-01-13 22:20 | NUR ---
PT AGITATED, TRYING TO GET OUT OF BED. MD BORREGO AWARE, HE STATED HE WOULD PUT IN ORDERS. WILL CONTINUE TO MONITOR PT.
[2017-01-13] MEDS ORDERED: LORazepam 0.5 MG TAB PO PRN (22:30)
--- NOTE | 2017-01-13 23:19 | NUR ---
PT AWAKE AT THIS TIME, PT STATING THAT SHE MISSES HER DAUGHTER TEMO.
--- NOTE | 2017-01-13 23:58 | NUR ---
PT AGITATED, TRYING TO GET OUT OF BED. SHE STATES THAT SHE WANTS TO GO HOME TO COVER HER KIDS. VS STABLE, WILL MEDICATE ORDERED.
[2017-01-14] VITALS: BP 128/71
--- NOTE | 2017-01-14 01:25 | NUR ---
PT SLEEPING AT THIS TIME. NO SIGNS OF DISTRESS OR DISCOMFORT NOTED. WILL CONTINUE TO MONITOR PT.
--- NOTE | 2017-01-14 02:40 | NUR ---
PT WANTED TO VOID. PROVIDED HER WITH BEDPAN. PT RESTING IN BED NOW, BED ALARM ON.
--- NOTE | 2017-01-14 04:46 | NUR ---
PT STATED THAT SHE WANTS TO GO HOME WITH HER CHILDREN. SHE STATES THAT SHE DOES NOT WANT TO STAY HERE ANYMORE. EXPLAINED TO PT WHY SHE IS HERE; PT NEEDS REINFORCEMENT.
--- NOTE | 2017-01-14 06:04 | NUR ---
DESIGN MAKER AT BED SIDE. WILL CONTINUE TO MONITOR PT.
[2017-01-14 06:49] LABS: BASOPHILS # (AUTO) 0.1 K/uL (0.00-0.22); EOSINOPHILS # (AUTO) 0.3 K/uL (0-0.4); HEMATOCRIT 30.9 % (36-48); HEMOGLOBIN 10.1 g/dL (12.0-16.0); LYMPHOCYTES # (AUTO) 2.2 K/uL (2.5-16.5); LYMPHOCYTES % (AUTO) 26.1 % (20.5-51.1); MEAN CORPUSCULAR HEMOGLOBIN 31 pg (27-31); MEAN CORPUSCULAR HGB CONC 33 g/dL (33-37); MEAN CORPUSCULAR VOLUME 93 fL (80-94); MONOCYTES # (AUTO) 0.6 K/uL (0.8-1.0); MONOCYTES % (AUTO) 7.2 % (1.7-9.3); NEUTROPHILS # (AUTO) 5.4 K/uL (1.8-7.7); NEUTROPHILS % (AUTO) 61.7 % (42.2-75.2); PLATELET COUNT (AUTO) 179 K/uL (140-450); RED BLOOD CELL COUNT(AUTO) 3.31 MIL/uL (4.20-5.40); RED CELL DISTRIBUTION WIDTH 12.7 % (11.6-13.7); WHITE BLOOD COUNT (AUTO) 8.6 K/uL (4.8-10.8)
--- NOTE | 2017-01-14 07:20 | NUR ---
ENDORSED PLAN OF CARE TO DAY SHIFT NURSE. PT IN STABLE CONDITION.
[2017-01-14 07:41] LABS: ANION GAP 11.1 (8-16); CARBON DIOXIDE 26.8 mmol/L (21-32); CHLORIDE 105 mmol/L (98-107); CREATININE 1.2 mg/dL (0.6-1.3); GLUCOSE 119 mg/dL (74-106); POTASSIUM 3.9 mmol/L (3.5-5.1); SODIUM SERUM 139 mmol/L (136-145); UREA NITROGEN, BLOOD 25 mg/dL (7-18)
[2017-01-14 07:58] LABS: MAGNESIUM 1.9 mg/dL (1.8-2.4); PHOSPHORUS 3.2 mg/dL (2.5-4.9)
[2017-01-14 08:00] VITALS: BP 132/70
[2017-01-14] MEDS: Z-GUARD PASTE TP SCH ×3 (09:00→18:00)
--- NOTE | 2017-01-14 10:00 | NUR ---
RECEIVED REPORT FROM RENATA JONES FOR CONTINUITY OF CARE. PATIENT AWAKE A/0X3 WITH A PERIOD OF CONFUSION. NO S/S SOF RESP DISTRESS NOTED. ABLE TO MAKE NEEDS KNOWN IV SITE RIGHT HAND GAUGE 24 INTACT AND PATENT IVF INFUSING WELL. PLAN OF CARE DISCUSSED WITH THE PATIENT VITALS STABLE WILL CONTINUE TO MONITOR.
[2017-01-14] MEDS: CALCIUM CARB/VIT-D 500 MG/200 IU 1 TAB PO SCH (10:02)
[2017-01-14] MEDS: GABAPENTIN 100 MG CAP PO SCH ×3 (10:02→17:59)
[2017-01-14] MEDS: LACTOBACILLUS RHAMNOSUS GG 1 EACH CAP PO SCH (10:02)
[2017-01-14] MEDS: SERTRALINE 50 MG TAB PO SCH (10:02)
[2017-01-14] MEDS: MAGNESIUM OXIDE 400 MG TAB PO SCH (10:02)
[2017-01-14] MEDS: LISINOPRIL 20 MG TAB PO SCH (10:03)
[2017-01-14] MEDS: DIVALPROEX 250 MG TABEC PO SCH (10:03)
[2017-01-14] MEDS: FUROSEMIDE 20 MG TAB PO SCH (10:03)
[2017-01-14] MEDS: amLODIPine 5 MG TAB PO SCH (10:04)
[2017-01-14] MEDS: OXYBUTYNIN 5 MG TAB PO SCH (10:04)
[2017-01-14] MEDS: FERROUS SULFATE 325 MG TABEC PO SCH (10:04)
[2017-01-14] MEDS: CHOLECALCIFEROL 1,000 IU TAB PO SCH (10:04)
[2017-01-14] MEDS: MULTIVITAMIN 1 TAB PO SCH (10:04)
[2017-01-14] MEDS: CELECOXIB 100 MG CAP PO SCH (10:04)
[2017-01-14] MEDS: ECOTRIN 81 MG TABEC PO SCH (10:06)
--- NOTE | 2017-01-14 12:00 | NUR ---
AWAKE AND CONFUSED REORIENTED HER TO THE PLACE , PERSON AND TIME, LUNCH SERVED GOOD APPETITE WILL OBSERVE PATIENT.
--- NOTE | 2017-01-14 12:12 | NUR ---
CALLED [facility] AND SPOKE WITH JAQUELINE. AUTH FOR GURNEY TRANSPORT IS [id number]. I CALLED [facility] AND SET UP GURNEY TRANSPORT FOR 5P.Atiya BOTELLO RN CHARGE JENN HENSLEY.
[2017-01-14] MEDS: NACL 0.9% 1,000 ML IV SCH (13:08)
[2017-01-14] MEDS: hydrALAZINE 25 MG TAB PO SCH (13:09)
--- NOTE | 2017-01-14 14:00 | NUR ---
PATIENT HAS D/C ORDER SCHEDULE TIME WITH [facility] AT 1700 . RELAXED DENIES ANY PAIN STABLE CONDITION.
[2017-01-14 16:00] VITALS: BP 138/72
--- NOTE | 2017-01-14 16:00 | NUR ---
VITALS STABLE NO DISTRESS NOTED [facility] CALLED AND WILL BE LATE FOR 60-90 MIN
--- NOTE | 2017-01-14 17:00 | NUR ---
DAUGHTER TEMO STATED CAN NOT WAIT THE [facility]SPORT WILLING TO TAKE HER MOM TO [facility]
--- NOTE | 2017-01-14 17:38 | NUR ---
[facility] TRANSPORTATION CANCELED.
--- NOTE | 2017-01-14 18:27 | NUR ---
DISCHARGE INSTRUCTION GIVEN TO PATIENT AND DAUGHTER . REPORT GIVEN TO NURSE AT [facility] . ALL PAPER WORK SIGNED BY PATIENT'S DAUGHTER. STABLE CONDITION UPON DISCHARGE.
[2017-01-20] MEDS ORDERED: ALENDRONATE SODIUM 70 MG TAB PO SCH (06:00)
== END 2017-01-14 18:15 | disposition home or self-care (01) | DRG 64 ==
LOC: MED 20:52 → MTU 23:31
PROVIDERS: ADMIT Family Medicine; ATTEND Family Medicine
DX: I63.9 Cerebral infarction, unspecified (principal); N17.0 Acute kidney failure with tubular necrosis; G93.41 Metabolic encephalopathy; N39.0 Urinary tract infection, site not specified; F02.81 Dementia in other diseases classified elsewhere, unspecified severity, with behavioral disturbance; R44.3 Hallucinations, unspecified; G30.9 Alzheimer's disease, unspecified; M94.0 Chondrocostal junction syndrome [Tietze]; G90.9 Disorder of the autonomic nervous system, unspecified; Z66 Do not resuscitate; E78.5 Hyperlipidemia, unspecified; J45.909 Unspecified asthma, uncomplicated; F32.9 Major depressive disorder, single episode, unspecified; E83.42 Hypomagnesemia; I25.10 Atherosclerotic heart disease of native coronary artery without angina pectoris; K21.9 Gastro-esophageal reflux disease without esophagitis; N18.2 Chronic kidney disease, stage 2 (mild); Z96.653 Presence of artificial knee joint, bilateral; H51.20 Internuclear ophthalmoplegia, unspecified eye; I12.9 Hypertensive chronic kidney disease with stage 1 through stage 4 chronic kidney disease, or unspecified chronic kidney disease; E11.22 Type 2 diabetes mellitus with diabetic chronic kidney disease; M81.0 Age-related osteoporosis without current pathological fracture; Z53.29 Procedure and treatment not carried out because of patient's decision for other reasons; G70.00 Myasthenia gravis without (acute) exacerbation; Z79.2 Long term (current) use of antibiotics; Z79.82 Long term (current) use of aspirin; Z79.899 Other long term (current) drug therapy; Z95.818 Presence of other cardiac implants and grafts; Z80.8 Family history of malignant neoplasm of other organs or systems; Z80.0 Family history of malignant neoplasm of digestive organs; Z89.422 Acquired absence of other left toe(s); Z90.49 Acquired absence of other specified parts of digestive tract
CPT/HCPCS: 36415; 70450; 71010; 80048; 80053; 81001; 82150; 83036; 83605; 83690; 83735; 83880; 84100; 84436; 84439; 84443; 84479; 84484; 85025; 85610; 85730; 86886; 86900; 86901; 87040; 87081; 87086; 87186; 93005; 93880; 93925; 93970; 96365; 97110; 97116; 97530; 99285; C1758; J0696; J2270; J3475; J7030; J7060; Q0092

== ENCOUNTER 2017-09-14 20:19 | Inpatient (IN) | payer OTHER ==
[~2017-09-14] VITALS: Ht 160 cm; Wt 65.8 kg
[~2017-09-14 20:19] MED LIST changes: -ACET-3783 PO; +ACET-5636 PO; +ASPI-1173 PO; -ASPI81TA28 PO; -DONE5TAB2 PO; +DONE5TAB6 PO; +FERR325E14 PO; +FLOR250 PO; +FURO-572 PO; +LACT1CAP71 PO; -LEVO500T6 PO; +MELO7.5T11 PO; +POTA8TER12 PO; -SACC250C4 PO
[2017-09-14 20:22] VITALS: BP 149/78
--- NOTE | 2017-09-14 20:36 | NUR ---
PT SENT TO ER BED 4 [facility]-REPORT GIVEN TO RN.
--- NOTE | 2017-09-14 20:39 | NUR ---
Minesh rasmussen in [facility] - 09/14/17 at 2055 by MEDDM BIBA TO ER BED 4
--- NOTE | 2017-09-14 20:40 | NUR ---
PT IS A 87 Y/O FEMALE BROUGHT IN BY AMBULANCE TO THE ED FROM [facility] WITH C/O FEVER 100.2, AND CONFUSION. PT IS AAOX2, NO S/S OF DISTRESS NOTED. RR EVEN/UNLABORED. PT DENIES ANY PAIN, N/V/D/ OR ALOC. PT DENIES ANY ALLERGIES TO MEDICATIONS. BED IN LOWEST POSITION, ED MD DR. ARROYO MADE AWARE, WILL CONTINUE TO MONITOR
[2017-09-14] MEDS ORDERED: IBUPROFEN 600 MG TAB PO ONE (20:45)
[2017-09-14] MEDS ORDERED: IBUPROFEN 600 MG TAB ONE (20:46)
[2017-09-14] MEDS ORDERED: NACL 0.9% 1,000 ML IV ONE (21:05)
[2017-09-14] MEDS ORDERED: cefTRIAXone 1,000 MG VIAL ONE (21:13)
[2017-09-14 21:28] LABS: BASOPHILS % (AUTO) 0.3 % (0.0-2.0); EOSINOPHILS # (AUTO) 0.5 K/uL (0-0.4); EOSINOPHILS % (AUTO) 4.6 % (0.0-4.0); HEMATOCRIT 31.3 % (36-48); HEMOGLOBIN 10.1 g/dL (12.0-16.0); LYMPHOCYTES # (AUTO) 0.6 K/uL (2.5-16.5); LYMPHOCYTES % (AUTO) 6.4 % (20.5-51.1); MEAN CORPUSCULAR HEMOGLOBIN 31 pg (27-31); MEAN CORPUSCULAR HGB CONC 32 g/dL (33-37); MEAN CORPUSCULAR VOLUME 95 fL (80-94); MONOCYTES # (AUTO) 0.2 K/uL (0.8-1.0); MONOCYTES % (AUTO) 2.4 % (1.7-9.3); NEUTROPHILS # (AUTO) 8.5 K/uL (1.8-7.7); NEUTROPHILS % (AUTO) 86.3 % (42.2-75.2); PLATELET COUNT (AUTO) 188 K/uL (140-450); RED BLOOD CELL COUNT(AUTO) 3.29 MIL/uL (4.20-5.40); WHITE BLOOD COUNT (AUTO) 9.8 K/uL (4.8-10.8)
--- NOTE | 2017-09-14 21:30 | NUR ---
PT RESTING IN BED WITH DAUGHTER AT THE BEDSIDE, NO S/S OF DISTRESS NOTED. DAUGHTER AT THE BEDSIDE, WILL CONTINUE TO MONITOR
[2017-09-14 21:33] LABS: APPEARANCE,URINE CLEAR (CLEAR); BILIRUBIN,URINE NEGATIVE (NEGATIVE); BLOOD, URINE NEGATIVE (NEGATIVE); LEUKOCYTE ESTERASE ,URINE NEGATIVE (NEGATIVE); NITRITE, URINE NEGATIVE (NEGATIVE); PH,URINE 6.5 (5.0-9.0); UGLUCOSE NEGATIVE (NEGATIVE)
[2017-09-14 21:34] LABS: ANION GAP 13.5 (8-16); CARBON DIOXIDE 28.5 mmol/L (21-32); CHLORIDE 101 mmol/L (98-107); CREATININE 1.4 mg/dL (0.6-1.3); GLUCOSE 144 mg/dL (74-106); SODIUM SERUM 138 mmol/L (136-145); UREA NITROGEN, BLOOD 29 mg/dL (7-18)
[2017-09-14 21:35] LABS: COLOR,URINE STRAW (YELLOW)
[2017-09-14 21:40] LABS: ALBUMIN 3.6 g/dL (3.4-5.0); ASPARTATE AMINOTRANSFERASE 18 U/L (15-37); TOTAL BILIRUBIN 0.3 mg/dL (0.0-1.0)
[2017-09-14] MEDS ORDERED: MEROPENEM 1,000 MG in NACL 0.9% 100 ML IV ONE (21:50)
[2017-09-14] MEDS ORDERED: VANCOMYCIN 1,000 MG in DEXTROSE 5% 250 ML IV ONE (21:50)
[2017-09-14] MEDS ORDERED: VANCOMYCIN 1,000 MG VIAL ONE (21:56)
[2017-09-14] MEDS ORDERED: MEROPENEM 1,000 MG VIAL IV ONE (21:57)
[2017-09-14] MEDS ORDERED: ACETAMINOPHEN 325 MG TAB PO PRN (22:00)
[2017-09-14] MEDS ORDERED: MORPHINE SULFATE 4 MG/ML SYR IVP PRN (22:00)
[2017-09-14] MEDS ORDERED: HYDROcodone/APAP 7.5/325 MG 1 TAB PO PRN (22:00)
[2017-09-14] MEDS ORDERED: ONDANSETRON 4 MG/2 ML VIAL IM/IVP PRN (22:00)
[2017-09-14] MEDS ORDERED: DOCUSATE SODIUM 100 MG GELCAP PO PRN (22:00)
[2017-09-14] MEDS ORDERED: ALBUTEROL SULFATE/IPRATROPIU 3 ML SOL IH PRN (22:20)
--- NOTE | 2017-09-14 22:22 | NUR ---
Patient will be admitted to care of [facility]. Admited to TELE. Will go to room 121B. Belongings list completed. Report to BRIJESH JONES.
--- NOTE | 2017-09-14 22:25 | NUR ---
RECEIVED REPORT FROM ER NURSE. PT HAS HX DEMENTIA AND IS A/OX2, ON 2L O2 VIA GTUBE. 22G IV TO LEFT HAND INFUSING NS@60ML/HR. PT IS A FALL RISK, FALL PRECAUTIONS IN PLACE. PT SKIN IS INTACT. UPDATED BOARD. MRSA OBTAINED. VITAL SIGNS WITHIN NORMAL LIMITS, NO SIGNS OF DISTRESS NOTED. BED IN LOWEST POSITION, CALL LIGHT WITHIN REACH. WILL CONTINUE TO MONITOR.
[2017-09-14 22:40] VITALS: BP 142/70
[2017-09-14] MEDS ORDERED: ALBUTEROL SULFATE/IPRATROPIU 3 ML SOL IH SCH (23:00)
[2017-09-14 23:03] LABS: CHOL/HDL RATIO 3.1 (1-4.5); FREE T4 (FREE THYROXINE) 0.72 ng/dL (0.76-1.46); MAGNESIUM 1.4 mg/dL (1.8-2.4); PHOSPHORUS 3.4 mg/dL (2.5-4.9); THYROID STIMULATING HORMONE 0.81 uIU/mL (0.34-3.74)
[2017-09-14] MEDS: NACL 0.9% 1,000 ML IV SCH (23:08)
[2017-09-14 23:12] LABS: PROTHROMBIN TIME 11.2 secs (10.8-13.4)
[2017-09-15] VITALS (7 sets, daily range): BP systolic 110–140; BP diastolic 49–69
--- NOTE | 2017-09-15 | NUR ---
VITAL SIGNS WITHIN NORMAL LIMITS. PT IN STABLE CONDITION, NO SIGNS OF DISTRESS NOTED. BED IN LOWEST POSITION, CALL LIGHT WITHIN REACH. WILL CONTINUE TO MONITOR.
[2017-09-15] MEDS ORDERED: MAG SULF 2000 MG/WATER PREMIX 50 ML IV SCH (00:25)
[2017-09-15] MEDS ORDERED: NON-FORMULARY ITEM (Oxycodone HCl/Acetaminophen (Percocet 10-325 mg Tablet) 1 TAB) PO PRN (00:40)
[2017-09-15] MEDS ORDERED: MECLIZINE 25 MG TAB PO PRN (00:40)
--- NOTE | 2017-09-15 04:00 | NUR ---
VITAL SIGNS WITHIN NORMAL LIMITS. PT IN STABLE CONDITION, NO SIGNS OF DISTRESS NOTED. BED IN LOWEST POSITION, CALL LIGHT WITHIN REACH. WILL CONTINUE TO MONITOR.
[2017-09-15] MEDS: CLINDAMYCIN 600 MG in DEXTROSE 5% 50 ML IV SCH ×3 (05:00→21:14)
[2017-09-15] MEDS ORDERED: CLINDAMYCIN 600 MG/4 ML VIAL ONE (05:05)
--- NOTE | 2017-09-15 05:45 | NUR ---
COPYRIGHT CLERK CALLED TO SAY SHE WAS VERY BUSY AND ER AND SHE WILL COME GET PT THE FIRST CHANCE SHE GETS.
[2017-09-15] MEDS ORDERED: LEVOFLOXACIN 750 MG/D5W PREMIX 150 ML IV SCH (06:00)
--- NOTE | 2017-09-15 06:30 | NUR ---
PT LEFT UNIT IN STABLE CONDITION VIA WHEELCHAIR, PT TO GET HEAD CT.
[2017-09-15 06:42] LABS: BASOPHILS # (AUTO) 0.1 K/uL (0.00-0.22); BASOPHILS % (AUTO) 0.9 % (0.0-2.0); EOSINOPHILS # (AUTO) 0.4 K/uL (0-0.4); EOSINOPHILS % (AUTO) 6.9 % (0.0-4.0); HEMATOCRIT 25.5 % (36-48); HEMOGLOBIN 8.5 g/dL (12.0-16.0); LYMPHOCYTES # (AUTO) 0.9 K/uL (2.5-16.5); LYMPHOCYTES % (AUTO) 14.8 % (20.5-51.1); MEAN CORPUSCULAR HEMOGLOBIN 32 pg (27-31); MEAN CORPUSCULAR HGB CONC 33 g/dL (33-37); MEAN CORPUSCULAR VOLUME 95 fL (80-94); MONOCYTES # (AUTO) 0.5 K/uL (0.8-1.0); MONOCYTES % (AUTO) 8.6 % (1.7-9.3); NEUTROPHILS # (AUTO) 3.9 K/uL (1.8-7.7); NEUTROPHILS % (AUTO) 68.8 % (42.2-75.2); PLATELET COUNT (AUTO) 152 K/uL (140-450); RED BLOOD CELL COUNT(AUTO) 2.69 MIL/uL (4.20-5.40); RED CELL DISTRIBUTION WIDTH 13.2 % (11.6-13.7); WHITE BLOOD COUNT (AUTO) 5.8 K/uL (4.8-10.8)
[2017-09-15 06:58] LABS: CARBON DIOXIDE 27.7 mmol/L (21-32); CHLORIDE 106 mmol/L (98-107); CREATININE 1.2 mg/dL (0.6-1.3); GLUCOSE 100 mg/dL (74-106); POTASSIUM 4.7 mmol/L (3.5-5.1); SODIUM SERUM 139 mmol/L (136-145); UREA NITROGEN, BLOOD 25 mg/dL (7-18)
--- NOTE | 2017-09-15 07:00 | NUR ---
PT CAME BACK FROM HEAD CT IN STABLE CONDITION.
[2017-09-15 07:15] LABS: MAGNESIUM 2.6 mg/dL (1.8-2.4); PHOSPHORUS 3.2 mg/dL (2.5-4.9)
--- NOTE | 2017-09-15 07:32 | NUR ---
ENDORSED PT IN STABLE CONDITION TO DAY SHIFT SHIFT NURSE FOR CONTINUITY OF CARE.
--- NOTE | 2017-09-15 07:35 | NUR ---
RECEIVED REPORT FROM POSTAL SERVICE WINDOW CLERK NURSE, PT IS AAOX2, CONFUSED, PT IS ON BEDREST, IV IS ON THE LEFT HAND, PATENT, INTACT, FLUSHING WELL, PT IS ON O2 2L NC, PT HAS ERYTHEMA ON HER BUTTOCKS, LEFT BIG TOE AMPUTATION, NO S/S OF RESPIRATORY DISTRESS OR DISCOMFORT NOTED, DISCUSSED PLAN OF CARE WITH PT, REINFORCEMENT NEEDED, SAFETY/FALL PRECAUTIONS ARE IN PLACE, CALL LIGHT IS WITHIN REACH, WILL CONTINUE TO MONITOR.
--- NOTE | 2017-09-15 08:40 | NUR ---
PATIENT HAS BEEN SCREENED AND CATEGORIZED MODERATE NUTRITION RISK. PATIENT WILL BE SEEN WITHIN 3-5 DAYS OF ADMISSION. 09/16/17-09/18/[address]
[2017-09-15] MEDS: amLODIPine 5 MG TAB PO SCH (09:00)
[2017-09-15] MEDS: MAGNESIUM OXIDE 400 MG TAB PO SCH (09:00)
[2017-09-15] MEDS ORDERED: NON-FORMULARY ITEM (Cranberry Fruit Concentrate (Cranberry) 450 MG) PO SCH (09:00)
[2017-09-15] MEDS: FUROSEMIDE 20 MG TAB PO SCH (09:00)
[2017-09-15] MEDS ORDERED: NON-FORMULARY ITEM (Divalproex Sodium* (Depakote Er (Extended Release)*) 250 MG) PO SCH (09:00)
[2017-09-15] MEDS: OXYBUTYNIN 5 MG TAB PO SCH (09:40)
[2017-09-15] MEDS: DIVALPROEX 250 MG TABEC PO SCH ×2 (09:40→21:15)
[2017-09-15] MEDS: ECOTRIN 81 MG TABEC PO SCH (09:40)
[2017-09-15] MEDS: GABAPENTIN 100 MG CAP PO SCH ×3 (09:40→16:46)
[2017-09-15] MEDS: FERROUS SULFATE 325 MG TABEC PO SCH ×2 (09:41→21:15)
[2017-09-15] MEDS: DOCUSATE SODIUM 100 MG GELCAP PO SCH ×2 (09:41→21:15)
[2017-09-15] MEDS: CALCIUM CARB/VIT-D 500 MG/200 IU 1 TAB PO SCH (09:41)
[2017-09-15] MEDS: LACTOBACILLUS RHAMNOSUS GG 1 EACH CAP PO SCH (09:41)
[2017-09-15] MEDS: CHOLECALCIFEROL 1,000 IU TAB PO SCH (09:41)
[2017-09-15] MEDS: SERTRALINE 50 MG TAB PO SCH (09:42)
[2017-09-15] MEDS: hydrALAZINE 25 MG TAB PO SCH (12:41)
--- NOTE | 2017-09-15 13:40 | NUR ---
CM NOTE INITIAL REVIEW FOR CRITERIA DONE
[2017-09-15] MEDS: NACL 0.9% 1,000 ML IV SCH (14:40)
--- NOTE | 2017-09-15 18:57 | NUR ---
* ST NOTE * Pt seen at bedside w/daughter present. Pt alert, cooperative and engaged throughout session, reporting no c/o pain at this time but frequently verbalizing regarding "paying bills", w/daughter reporting pt "gets paranoid and thinks any paper is a bill". Nsg informed of pt's paranoia and bxs, w/nsg verbalizing they are aware. Pt consenting to evaluation w/daughter present. Bedside dysphagia and oral mechanism exams completed. See evaluation report for further details. Pt tolerating 4/4 alternating PO trials of regular solid saltine crackers as well as 2/2 alternating PO trials of mechanical soft lunch meal, along with 3/3 alternating PO trials of thin liquid cranberry juice via a straw, all w/o s/s of aspiration or choking, exhibiting clear voicing WFL w/o wet or gargly vocal quality after PO intake. Pt and caregiver/daughter education completed regarding aspiration precautions and safe swallow compensatory strategies pt and caregivers/family/staff could utilize to aid pt w/swallow function, w/pt and caregiver/daughter verbalizing understanding and agreement w/clinician's recommendations. It is thus recommended pt's PO diet consistency remain as M/S textures w/thin liquids for all meals, w/aspiration precautions in place. No further ST follow up recommended at this time. Pt, caregiver/daughter & caregiver/nsg education completed regarding results of evaluation; benefits of abiding by aspiration precautions and recommended PO diet consistency; and prognosis for improvement; with pt, caregiver/daughter & caregiver/nsg verbalizing understanding and agreement w/clinician's recommendations. Recommend: - Continue PO diet consistency of MECHANICAL SOFT TEXTURES W/THIN LIQUIDS for all meals - PO medication administration CRUSHED IN PUREE OR MECHANICAL SOFT TEXTURES - Maintain aspiration precautions during pt's PO intake and during PO medication administration No further ST follow up recommended at this time. G8996 CJ G8997 CI G8998 CI NOMS Level 2 Time In/Out 18:25 - 18:55
--- NOTE | 2017-09-15 19:25 | NUR ---
ENDORSED PT TO SPORTS COORDINATOR NURSE FOR CONTINUITY OF CARE. PT STABLE AT THIS TIME. PT'S DAUGHTER IS AT BEDSIDE.
--- NOTE | 2017-09-15 19:25 | NUR ---
RECEIVED FROM AM RN IN BED . TOTAL CARE. ALZHEIMERS DSE. HX. PER DAUGHTER. CONFUSED. PT. CALL LIGHT WITH IN REACH. DAUGHTER AT BEDSIDE AND REQUESTING THAT HER MOTHER BE GIVEN SLEEPING PILL. WILL CALL FOR ORDER. CARE PLANS FOR THE NIGHT DISCUSSED WITH THEM. IVF SITE TO LEFT HAND #22 INTACT AND NO INFILTRATION NOTED. DX. PNA. BED ALARM ON. DAUGHTER REQUESTED TO STAY AND WATCH OVER MOTHER.
[2017-09-15] MEDS ORDERED: ZOLPIDEM 5 MG TAB PO PRN (20:15)
[2017-09-15] MEDS ORDERED: QUEtiapine FUMARATE 25 MG TAB PO SCH (21:00)
[2017-09-15] MEDS ORDERED: traZODone 50 MG TAB PO SCH (21:00)
[2017-09-15] MEDS: DONEPEZIL 10 MG TAB PO SCH (21:14)
[2017-09-15] MEDS: CLOPIDOGREL 75 MG TAB PO SCH (21:14)
[2017-09-15] MEDS: LISINOPRIL 20 MG TAB PO SCH (21:15)
[2017-09-15] MEDS: ATORVASTATIN 20 MG TAB PO SCH (21:16)
--- NOTE | 2017-09-15 22:18 | NUR ---
PATIENT CONFUSED AND REFUSED/UNABLE TO DO INCENTIVE SPIROMETER
--- NOTE | 2017-09-16 | NUR ---
AWAKE AT THIS TIME. WANTED TO HAVE HER LINEN CHANGED RT PER PT SHE IS WET WITH URINE. CNAS CHECKED BUT FOUND IT DRY. ENCOURAGED TO GO BACK TO SLEEP. NO SOB. 02 SAT WITH IN NORMAL LIMITS. NO COUGHING NOTED. CTAB.
--- NOTE | 2017-09-16 02:40 | NUR ---
SLEEPING AT THIS TIME. NEEDS ANTICIPATED AND WILL BE MET. TELEMETRY MONITORING.
--- NOTE | 2017-09-16 03:15 | NUR ---
SLEEPING. NO RESTLESSNESS. WAKES UP EASILY WHEN TOUCHED.
[2017-09-16 04:00] VITALS: BP 159/75
[2017-09-16] MEDS: CLINDAMYCIN 600 MG in DEXTROSE 5% 50 ML IV SCH ×2 (05:30→12:39)
[2017-09-16] MEDS: NACL 0.9% 1,000 ML IV SCH (05:32)
[2017-09-16 06:16] LABS: T4 (THYROXINE) 5.4 ug/dL (4.5-12.0)
--- NOTE | 2017-09-16 06:26 | NUR ---
NEEDS ANTICIPATED AND MET. COMBATIVE TO HYGIENE CARE. TURNED TO SIDES Q 2H WITH PILLOW SUPPORT TO PRESSURE AREAS. ABLE TO VERBALIZE SIMPLE NEEDS. TENDENCY TO SHOUT IF BED LINEN TRIED TO CHANGE. IVF SITE INTACT AND NO INFILTRATION.
--- NOTE | 2017-09-16 07:20 | NUR ---
RECEIVED REPORT FROM LINKER UP NURSE AT BEDSIDE FOR CONTINUITY OF CARE. PATIENT ASLEEP BUT AROUSABLE. UPDATED BOARD. RESPIRATIONS EVEN AND UNLABORED ON 2L O2 VIA NC. DENIES PAIN AT THIS TIME. IV ON L HAND 22G WITH NS AT 60 ML/HR INFUSING WELL, IV INTACT, ASYMPTOMATIC, AND PATENT. SKIN INTACT WITH SACRAL REDNESS. PATIENT CAN VERBALIZE REQUESTS. ALL NEEDS MET AT THIS TIME, SAFETY PRECAUTIONS IN PLACE, BED ON LOWEST SETTING, BED ALARM ON, CALL LIGHT WITHIN REACH. WILL CONTINUE TO MONITOR PATIENT.
[2017-09-16 07:41] LABS: POTASSIUM 4.4 mmol/L (3.5-5.1); SODIUM SERUM 142 mmol/L (136-145)
[2017-09-16 07:42] LABS: ANION GAP 11.6 (8-16); ASPARTATE AMINOTRANSFERASE 12 U/L (15-37); CARBON DIOXIDE 28.8 mmol/L (21-32); CHLORIDE 106 mmol/L (98-107); CREATININE 1.1 mg/dL (0.6-1.3); GLUCOSE 125 mg/dL (74-106); TOTAL BILIRUBIN 0.3 mg/dL (0.0-1.0); UREA NITROGEN, BLOOD 17 mg/dL (7-18)
[2017-09-16 07:43] LABS: ALBUMIN 2.7 g/dL (3.4-5.0); MAGNESIUM 1.7 mg/dL (1.8-2.4); PHOSPHORUS 2.6 mg/dL (2.5-4.9)
[2017-09-16 08:00] VITALS: BP 168/64
[2017-09-16] MEDS ORDERED: CLINICAL MONITORING MC SCH (09:00)
--- NOTE | 2017-09-16 10:11 | NUR ---
DOCTOR AT BEDSIDE SPEAKING TO PATIENT'S FAMILY ABOUT PENDING DISCHARGE BACK TO THE MEDICAL [facility]. CASE MANAGEMENT CALLED, PATIENT WILL BE TAKEN BACK TO THE [facility] VIA [facility]. PATIENT SHOWS NO SIGNS OF DISTRESS NOTED. PATIENT DENIES PAIN. SAFETY PRECAUTIONS IN PLACE, CALL LIGHT WITHIN REACH. WILL CONTINUE TO MONITOR PATIENT.
[2017-09-16] MEDS: DOCUSATE SODIUM 100 MG GELCAP PO SCH ×2 (10:33→21:59)
--- NOTE | 2017-09-16 10:33 | NUR ---
ADMINISTERED DUE MEDICATIONS. PATIENT'S DAUGHTER AT BEDSIDE. PATIENT TOLERATED IT WELL. NO SIGNS OF DISTRESS NOTED. PATIENT DENIES PAIN. SAFETY PRECAUTIONS IN PLACE, CALL LIGHT WITHIN REACH. WILL CONTINUE TO MONITOR PATIENT.
[2017-09-16] MEDS: amLODIPine 5 MG TAB PO SCH (10:34)
[2017-09-16] MEDS: CALCIUM CARB/VIT-D 500 MG/200 IU 1 TAB PO SCH (10:34)
[2017-09-16] MEDS: SERTRALINE 50 MG TAB PO SCH (10:34)
[2017-09-16] MEDS: GABAPENTIN 100 MG CAP PO SCH ×3 (10:34→18:01)
[2017-09-16] MEDS: CHOLECALCIFEROL 1,000 IU TAB PO SCH (10:34)
[2017-09-16] MEDS: LACTOBACILLUS RHAMNOSUS GG 1 EACH CAP PO SCH (10:34)
[2017-09-16] MEDS: ECOTRIN 81 MG TABEC PO SCH (10:35)
[2017-09-16] MEDS: DIVALPROEX 250 MG TABEC PO SCH ×2 (10:35→21:59)
[2017-09-16] MEDS: OXYBUTYNIN 5 MG TAB PO SCH (10:35)
[2017-09-16] MEDS: FERROUS SULFATE 325 MG TABEC PO SCH ×2 (10:35→22:00)
[2017-09-16] MEDS: FUROSEMIDE 20 MG TAB PO SCH (10:35)
[2017-09-16] MEDS: MAGNESIUM OXIDE 400 MG TAB PO SCH (10:35)
--- NOTE | 2017-09-16 10:44 | NUR ---
TIMOTHY NOTE RECEIVED ORDER TO DISCHARGE BACK TO [facility]. PER LIYAH OF [facility], PATIENT WILL GO TO [address] TELLEZ, NUMBER TO CALL FOR REPORT PH# [phone]. PER CHARGE NURSE AYAN, PATIENT NEEDS GURNEY TRANSPORT TO GO BACK TO [facility]. PER JENNIFER JONES, PATIENT ON 2L O2 NC CONTINUOUS. PATIENT HAS SECONDARY IEHP, PER IEHP TIMOTHY PARSONS FAX HER THE FACESHEET SO SHE CAN CREATE [facility]. FAXED FACESHEET TO IE [phone]. 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 JENNIFER JONES AND DANIELLE HENSLEY.
--- NOTE | 2017-09-16 11:25 | NUR ---
LAB CALLED, POSITIVE BLOOD CULTURES. MD INFORMED. WILL AWAIT NEW ORDERS.
[2017-09-16] MEDS ORDERED: TRAZ-286 PO (11:28)
[2017-09-16] MEDS ORDERED: LEVO750T2 PO (11:28)
[2017-09-16] MEDS ORDERED: CLIN300C2 PO (11:28)
[2017-09-16 12:00] VITALS: BP 151/62
--- NOTE | 2017-09-16 12:29 | NUR ---
CM NOTE PER DR. ALVARADO DISCHARGE ORDER FOR TODAY IS CANCELLED DUE TO CULTURE RESULTS. [place] RN AWARE. CALLED [facility] TO CANCEL ADMISSION SPECIALIST FOR TODAY. INFORMED [facility]Z [facility] THAT PATIENT IS NOT BEING DISCHARGED TODAY.
[2017-09-16] MEDS: hydrALAZINE 25 MG TAB PO SCH (12:39)
--- NOTE | 2017-09-16 14:20 | NUR ---
PATIENT HAD BLACK COLORED LIQUID DIARRHEA. DOCTORS INFORMED, WILL AWAIT NEW ORDERS. PATIENT'S DAUGHTERS AT BEDSIDE, PATIENT SHOWS NO SIGNS OF DISTRESS NOTED. PATIENT DENIES PAIN. SAFETY PRECAUTIONS IN PLACE, CALL LIGHT WITHIN REACH. WILL CONTINUE TO MONITOR PATIENT.
[2017-09-16 16:00] VITALS: BP 136/65
--- NOTE | 2017-09-16 16:30 | NUR ---
PATIENT CURRENTLY GETTING RENAL/PELVIS US. WILL AWAIT RESULTS.
--- NOTE | 2017-09-16 19:25 | NUR ---
REPORT GIVEN TO INSURANCE CLAIM AUDITOR RN AT BEDSIDE FOR CONTINUITY OF CARE. PATIENT IN STABLE CONDITION.
--- NOTE | 2017-09-16 19:26 | NUR ---
RECD. RESTING IN BED, AWAKE, A/OX1. RESPIRATION EVEN AND UNLABORED. IV OF NS AT 100 ML/HR INFUSING, LEFT HAND G22. PLAN OF CARE FOR THE SHIFT DISCUSSED WITH PATIENT AND DAUGHTER AT THE BEDSIDE. VERBALIZED UNDERSTANDING. SAFETY MEASURES ENFORCED. NO APPEARANCE OF PAIN NOTED 0/10.
[2017-09-16 20:00] VITALS: BP 145/74
[2017-09-16] MEDS ORDERED: traZODone 50 MG TAB PO SCH (21:00)
[2017-09-16] MEDS: metroNIDAZOLE 500 MG/NS PREMIX 100 ML IV SCH (21:38)
--- NOTE | 2017-09-16 21:50 | NUR ---
DUE PO MEDICATIONS GIVEN WITH APPLE SAUCE, TOLERATED WELL.
[2017-09-16] MEDS: DONEPEZIL 10 MG TAB PO SCH (21:59)
[2017-09-16] MEDS: CLOPIDOGREL 75 MG TAB PO SCH (22:06)
[2017-09-16] MEDS: ATORVASTATIN 20 MG TAB PO SCH (22:06)
[2017-09-16] MEDS: LISINOPRIL 20 MG TAB PO SCH (22:07)
[2017-09-17] VITALS: BP 126/68
[2017-09-17 04:00] VITALS: BP 140/74
[2017-09-17] MEDS: metroNIDAZOLE 500 MG/NS PREMIX 100 ML IV SCH ×2 (05:14→13:36)
[2017-09-17 05:51] LABS: BASOPHILS % (AUTO) 0.6 % (0.0-2.0); EOSINOPHILS # (AUTO) 0.3 K/uL (0-0.4); EOSINOPHILS % (AUTO) 3.8 % (0.0-4.0); HEMATOCRIT 28.5 % (36-48); HEMOGLOBIN 9.4 g/dL (12.0-16.0); LYMPHOCYTES # (AUTO) 1.4 K/uL (2.5-16.5); LYMPHOCYTES % (AUTO) 17.8 % (20.5-51.1); MEAN CORPUSCULAR HEMOGLOBIN 31 pg (27-31); MEAN CORPUSCULAR HGB CONC 33 g/dL (33-37); MEAN CORPUSCULAR VOLUME 95 fL (80-94); MONOCYTES # (AUTO) 0.6 K/uL (0.8-1.0); NEUTROPHILS # (AUTO) 5.6 K/uL (1.8-7.7); NEUTROPHILS % (AUTO) 70.8 % (42.2-75.2); PLATELET COUNT (AUTO) 201 K/uL (140-450); RED BLOOD CELL COUNT(AUTO) 3.01 MIL/uL (4.20-5.40); RED CELL DISTRIBUTION WIDTH 13.1 % (11.6-13.7); WHITE BLOOD COUNT (AUTO) 7.9 K/uL (4.8-10.8)
[2017-09-17 06:22] LABS: ANION GAP 9.7 (8-16); CARBON DIOXIDE 27.7 mmol/L (21-32); CHLORIDE 108 mmol/L (98-107); GLUCOSE 123 mg/dL (74-106); POTASSIUM 4.4 mmol/L (3.5-5.1); SODIUM SERUM 141 mmol/L (136-145); UREA NITROGEN, BLOOD 14 mg/dL (7-18)
[2017-09-17 06:29] LABS: MAGNESIUM 1.4 mg/dL (1.8-2.4); PHOSPHORUS 2.3 mg/dL (2.5-4.9)
--- NOTE | 2017-09-17 07:00 | NUR ---
ABLE TO SLEEP WELL. CONDITION REMAIN STABLE. WILL ENDORSED TO AM NURSE FOR CONTINUITY OF CARE.
--- NOTE | 2017-09-17 07:25 | NUR ---
RECEIVED REPORT FROM FARM MACHINERY ASSEMBLER NURSE AT BEDSIDE FOR CONTINUITY OF CARE. PT IS SLEEPING. WILL CONTINUE TO MONITOR PT LATER.
[2017-09-17 08:00] VITALS: BP 158/74
--- NOTE | 2017-09-17 08:10 | NUR ---
PT READY EATING BREAKFAST. V/S WITHIN NORMAL RANGE. NO SIGNS OF DISTRESS. INTRODUCED OURSELVES AND UPDATE THE BOARD. IV ON R HAND 22G NS AT 60ML STILL INFUSING. WILL CONTINUE TO MONITOR PT.
[2017-09-17] MEDS: NACL 0.9% 1,000 ML IV SCH (08:28)
[2017-09-17] MEDS: DOCUSATE SODIUM 100 MG GELCAP PO SCH (08:38)
[2017-09-17] MEDS: amLODIPine 5 MG TAB PO SCH (08:38)
[2017-09-17] MEDS: SERTRALINE 50 MG TAB PO SCH (08:39)
[2017-09-17] MEDS: FUROSEMIDE 20 MG TAB PO SCH (08:39)
[2017-09-17] MEDS: CHOLECALCIFEROL 1,000 IU TAB PO SCH (08:40)
[2017-09-17] MEDS: OXYBUTYNIN 5 MG TAB PO SCH (08:40)
[2017-09-17] MEDS: MAGNESIUM OXIDE 400 MG TAB PO SCH (08:40)
[2017-09-17] MEDS: ECOTRIN 81 MG TABEC PO SCH (08:40)
[2017-09-17] MEDS: GABAPENTIN 100 MG CAP PO SCH ×2 (08:40→12:54)
[2017-09-17] MEDS: FERROUS SULFATE 325 MG TABEC PO SCH (08:40)
[2017-09-17] MEDS: LACTOBACILLUS RHAMNOSUS GG 1 EACH CAP PO SCH (08:41)
[2017-09-17] MEDS: CALCIUM CARB/VIT-D 500 MG/200 IU 1 TAB PO SCH (08:41)
[2017-09-17] MEDS: DIVALPROEX 250 MG TABEC PO SCH (08:41)
--- NOTE | 2017-09-17 08:50 | NUR ---
ADMINISTERED MORNING MEDS. PT TOLERATED WELL. WILL CONTINUE TO MONITOR PT. DAUGHTER IN THE ROOM VISITING.
[2017-09-17] MEDS ORDERED: LEVOFLOXACIN 750 MG/D5W PREMIX 150 ML IV SCH (09:00)
[2017-09-17] MEDS ORDERED: SODIUM PHOS / POTASSIUM PHOS 1 PKT PDR PO SCH (10:00)
[2017-09-17] MEDS ORDERED: MAG SULF 2000 MG/WATER PREMIX 100 ML IV SCH (10:00)
[2017-09-17] MEDS ORDERED: SULF-59 PO (10:28)
[2017-09-17] MEDS ORDERED: METR500T1 PO (10:28)
--- NOTE | 2017-09-17 10:34 | NUR ---
SPOKE WITH LIYAH FROM [facility]. I FAXED INFORMATION TO HER AT [phone]. THE PATIENT CAN GO TO ROOM [address]B UNDER DR[address] ERICKSON. I CALLED JAQUELINE FROM [facility] FOR AUTH FOR TRANSPORT. THE AUTH FOR [facility] IS [id number]. I CALLED AND SET UP TRANSPORT FOR 2P.M. I CALLED SCARLETT JONES AND INFORMED HER..
[2017-09-17 12:00] VITALS: BP 141/68
[2017-09-17] MEDS: hydrALAZINE 25 MG TAB PO SCH (12:54)
--- NOTE | 2017-09-17 13:00 | NUR ---
ADMINISTERED AFTERNOON MEDS. PT TOLERATED WELL. TWO DAUGHTERS AT BEDSIDE. ASKING ABOUT D/C. EXPLAINED THERE IS AN ORDER FOR D/C TODAY. WAITING ON TRANSPORT.
--- NOTE | 2017-09-17 13:45 | NUR ---
ADMINISTERED FLAGYL ABX. PT TOLERATED WELL. WILL CONTINUE MONITOR PT.
--- NOTE | 2017-09-17 14:30 | NUR ---
GAVE REPORT TO [facility] MANAGER ORACLE DATABASE. GAVE D/C REPORT TO DAUGHTER. DAUGHTER VERBALIZED UNDERSTANDING. SIGNED ALL PAPERS. REMOVED IV, CANNULA INTACT. REMOVED ID BANDS. PT ALREADY DRESSED AND READY TO GO. TRANSPORTERS WILL DO THE TRANSFER. DAUGHTER GATHERED ALL PERSONAL BELONGINGS.
--- NOTE | 2017-09-17 14:37 | NUR ---
PHYSICAL THERAPY CO-SIGN The Physical Therapy Progress Notes documented by Teacher Asst have been reviewed. Reviewed/Co-Signed by: Desmond James PT Documentation Done by: HEATHER NI PTA PATIENT PROGRESSING STEADILY TOWARDS REHAB GOALS, IMPROVED TRANSFERS AND BED MOBILITY. Addendum: 09/17/17 at 1438 by Desmond James PT Amended: Links added.
--- NOTE | 2017-09-17 14:50 | NUR ---
[facility] HERE. TAKING PT TO [facility]. DAUGHTER ACCOMPANIED PT. ALL PERSONAL BELONGINGS WITH PT. PT IN STABLE CONDITION.
--- NOTE | 2017-09-17 15:26 | NUR ---
GAVE REPORT TO ROBERT DE LA ROSA AT THE [facility]. PT ALREADY ARRIVED.
== END 2017-09-17 14:50 | disposition home or self-care (01) | DRG 56 ==
LOC: MED 20:19 → MTU 22:03
PROVIDERS: ADMIT Family Medicine Sports Medicine; ATTEND Family Medicine Sports Medicine
DX: G30.9 Alzheimer's disease, unspecified (principal); J69.0 Pneumonitis due to inhalation of food and vomit; N17.0 Acute kidney failure with tubular necrosis; E43 Unspecified severe protein-calorie malnutrition; G93.41 Metabolic encephalopathy; I42.9 Cardiomyopathy, unspecified; E83.39 Other disorders of phosphorus metabolism; N39.0 Urinary tract infection, site not specified; E11.22 Type 2 diabetes mellitus with diabetic chronic kidney disease; D63.8 Anemia in other chronic diseases classified elsewhere; F02.80 Dementia in other diseases classified elsewhere, unspecified severity, without behavioral disturbance, psychotic disturbance, mood disturbance, and anxiety; E83.41 Hypermagnesemia; Z66 Do not resuscitate; E86.0 Dehydration; E83.42 Hypomagnesemia; E78.5 Hyperlipidemia, unspecified; K21.9 Gastro-esophageal reflux disease without esophagitis; I13.10 Hypertensive heart and chronic kidney disease without heart failure, with stage 1 through stage 4 chronic kidney disease, or unspecified chronic kidney disease; N18.2 Chronic kidney disease, stage 2 (mild); F32.9 Major depressive disorder, single episode, unspecified; Z96.653 Presence of artificial knee joint, bilateral; N32.81 Overactive bladder; M81.0 Age-related osteoporosis without current pathological fracture; G47.00 Insomnia, unspecified; M47.816 Spondylosis without myelopathy or radiculopathy, lumbar region; J98.4 Other disorders of lung; Z79.02 Long term (current) use of antithrombotics/antiplatelets; Z79.82 Long term (current) use of aspirin; Z85.3 Personal history of malignant neoplasm of breast; Z95.5 Presence of coronary angioplasty implant and graft; Z89.412 Acquired absence of left great toe; Z90.49 Acquired absence of other specified parts of digestive tract; Z79.899 Other long term (current) drug therapy; Z80.0 Family history of malignant neoplasm of digestive organs; Z80.8 Family history of malignant neoplasm of other organs or systems; Z80.41 Family history of malignant neoplasm of ovary; Z68.25 Body mass index [BMI] 25.0-25.9, adult; Z99.3 Dependence on wheelchair
CPT/HCPCS: 36415; 70450; 71045; 80048; 80053; 81003; 82140; 82150; 82272; 83036; 83690; 83735; 83880; 84100; 84436; 84439; 84443; 84479; 84484; 85025; 85610; 85730; 87040; 87081; 87086; 92610; 93005; 93880; 93976; 96365; 96367; 97110; 97116; 97140; 97530; 99285; C1758; J0696; J1956; J2185; J3370; J3475; J3490; J7030; J7060; Q0092

== ENCOUNTER 2019-06-16 17:25 | Inpatient (IN) | payer OTHER ==
[~2019-06-16] VITALS: Ht 149.9 cm; Wt 74.4 kg
[~2019-06-16 17:25] MED LIST changes: -ACET-5636 PO; +METR500T1 PO; +SULF-59 PO; +TRAZ-343 PO
--- NOTE | 2019-06-16 17:35 | NUR ---
Patient transferred to bed 4. RN evaluating patient at bedside.
[2019-06-16 17:49] VITALS: BP 167/80
--- NOTE | 2019-06-16 18:20 | NUR ---
BIBA W C/O LLQ PAIN RADIATING TO L LOWER BACK STARTING EARLIER TODAY. PER PT DAUGHTER, SHE GETS FREQUENT UTIs AND SHE THINKS THAT IS WHAT IS GOING ON. PT UNABLE TO VERBALIZE PAIN LOCATION OR DESCRIPTION. BED IN LOW POSITION, DAUGHTER AT BEDSIDE.
[2019-06-16] MEDS ORDERED: NACL 0.9% 1,000 ML IV ONE (19:05)
[2019-06-16 19:22] LABS: BASOPHILS % (AUTO) 0.3 % (0.0-2.0); EOSINOPHILS # (AUTO) 1.7 K/uL (0-0.4); EOSINOPHILS % (AUTO) 14.7 % (0.0-4.0); HEMATOCRIT 29.9 % (36-48); LYMPHOCYTES % (AUTO) 8.1 % (20.5-51.1); MEAN CORPUSCULAR HEMOGLOBIN 31 pg (27-31); MEAN CORPUSCULAR HGB CONC 33 g/dL (33-37); MEAN CORPUSCULAR VOLUME 92.6 fL (80-94); MONOCYTES # (AUTO) 0.9 K/uL (0.8-1.0); MONOCYTES % (AUTO) 7.2 % (1.7-9.3); NEUTROPHILS # (AUTO) 8.3 K/uL (1.8-7.7); NEUTROPHILS % (AUTO) 69.7 % (42.2-75.2); PLATELET COUNT (AUTO) 234 K/uL (140-450); RED BLOOD CELL COUNT(AUTO) 3.23 MIL/uL (4.20-5.40); RED CELL DISTRIBUTION WIDTH 14.3 % (11.6-13.7); WHITE BLOOD COUNT (AUTO) 11.9 K/uL (4.8-10.8)
[2019-06-16 19:26] LABS: APPEARANCE,URINE CLEAR (CLEAR); BILIRUBIN,URINE NEGATIVE (NEGATIVE); BLOOD, URINE NEGATIVE (NEGATIVE); COLOR,URINE YELLOW (YELLOW); LEUKOCYTE ESTERASE ,URINE NEGATIVE (NEGATIVE); NITRITE, URINE POSITIVE (NEGATIVE); UGLUCOSE NEGATIVE (NEGATIVE)
--- NOTE | 2019-06-16 19:32 | NUR ---
RECIEVED REPORT FROM ROBERT SIDDIQI. WILL CONT. CARE AT THIS TIME.
[2019-06-16 19:35] LABS: ALBUMIN 3.1 g/dL (3.4-5.0); ANION GAP 12.6 (8-16); ASPARTATE AMINOTRANSFERASE 20 U/L (15-37); CARBON DIOXIDE 26.2 mmol/L (21-32); CHLORIDE 102 mmol/L (98-107); CREATININE 1.1 mg/dL (0.6-1.3); GLUCOSE 129 mg/dL (74-106); POTASSIUM 4.8 mmol/L (3.5-5.1); SODIUM SERUM 136 mmol/L (136-145); TOTAL BILIRUBIN 0.3 mg/dL (0.0-1.0); UREA NITROGEN, BLOOD 27 mg/dL (7-18)
[2019-06-16] MEDS ORDERED: fentaNYL 0.05 MG/ML VIAL IVP ONE (19:40)
--- NOTE | 2019-06-16 19:59 | NUR ---
SHIRLEYNFER TO CT VIA NICOLE
--- NOTE | 2019-06-16 20:16 | NUR ---
PT RETUNED FROM CT VIA WHEELCHAIR.
[2019-06-16] MEDS ORDERED: ONDANSETRON 4 MG/2 ML VIAL IM/IVP PRN (20:45)
[2019-06-16] MEDS ORDERED: MORPHINE SULFATE 2 MG/ML SYR IVP PRN (20:45)
[2019-06-16] MEDS ORDERED: DOCUSATE SODIUM 100 MG GELCAP PO PRN (20:45)
[2019-06-16] MEDS ORDERED: ACETAMINOPHEN 325 MG TAB PO PRN (20:45)
[2019-06-16] MEDS ORDERED: cefTRIAXone 1,000 MG VIAL ONE (20:51)
--- NOTE | 2019-06-16 20:53 | NUR ---
X-Ray at bedside.
--- NOTE | 2019-06-16 22:04 | NUR ---
CONTACT INFO: ERIC JORDAN: [phone]
[2019-06-16] MEDS ORDERED: [UNRECOGNIZED DRUG - CODE] TP (22:41)
[2019-06-16] MEDS ORDERED: VITD1000 PO (22:51)
[2019-06-16] MEDS ORDERED: DONE10TA10 PO (22:51)
[2019-06-16] MEDS ORDERED: MEMA5TAB PO (22:51)
[2019-06-16] MEDS ORDERED: ARIP5TAB8 PO (22:51)
[2019-06-16] MEDS ORDERED: [UNRECOGNIZED DRUG - CODE] PO (22:51)
[2019-06-16] MEDS ORDERED: GLIP10TA3 PO (22:51)
[2019-06-16] MEDS ORDERED: ATOR20TA PO (22:51)
[2019-06-16] MEDS ORDERED: ASCO500T45 PO (22:51)
[2019-06-16] MEDS ORDERED: OMEG1CAP21 PO (22:51)
[2019-06-16] MEDS ORDERED: LORA10TA19 PO (22:51)
--- NOTE | 2019-06-16 23:27 | NUR ---
Patient will be admitted to care of dr. fleming. Admited to tele. Will go to room 121b. Belongings list completed. Report to ritika pack.
[2019-06-16] MEDS ORDERED: LORazepam 2 MG/ML VIAL IM/IVP SCH (23:30)
--- NOTE | 2019-06-16 23:35 | NUR ---
RECEIVED PATIENT FROM ED NURSE VIA RACHANARSOBEIDA ACCOMPANIED BY DAUGHTER. PATIENT COMBATIVE AND RESISTING STAFF TO TRANSFER HER. REDIRECTED AND CALMED DOWN AFTER A FEW MINUTES. PIV ON RIGHT THUMB SALINE LOCKED. WILL CONTINUE TO MONITOR.
[2019-06-16] MEDS ORDERED: KETOROLAC 15 MG/ML VIAL IVP PRN (23:50)
[2019-06-16] MEDS ORDERED: DEXTROSE 50% 50 ML SYR IVP PRN (23:50)
[2019-06-16] MEDS ORDERED: INSULIN LISPRO SLIDING SCALE 100 UNITS/ML VIAL SUBQ PRN (23:50)
[2019-06-16] MEDS ORDERED: GABA100C PO (23:53)
[2019-06-17] VITALS: BP 147/72
[2019-06-17] MEDS: NACL 0.9% 1,000 ML IV SCH ×3 (00:48→16:53)
--- NOTE | 2019-06-17 01:30 | NUR ---
IV ON RIGHT THUMB DISLODGED. RE-INSERTED ON LEFT FOREARM 24G. WILL CONTINUE TO MONITOR.
--- NOTE | 2019-06-17 03:25 | NUR ---
PATIENT ASLEEP IN BED. NO APPARENT DISTRESS NOTED. BED ALARM ON. BED ON LOW POSITION. WILL CONTINUE TO MONITOR.
[2019-06-17 04:00] VITALS: BP 150/71
--- NOTE | 2019-06-17 05:20 | NUR ---
PATIENT AWAKE IN BED. TALKING TO HER DAUGHTER. NO APPARENT DISTRESS NOTED WILL CONTINUE TO MONITOR.
--- NOTE | 2019-06-17 06:00 | NUR ---
NOTIFIED DR. KRISHNA, RESIDENT, REGARDING PATIENT'S RASHES ALL OVER THE BODY. SAID HE WILL TAKE A LOOK AT IT.
[2019-06-17] MEDS: BLOOD GLUCOSE MONITORING 1 DEV DEV FS SCH ×4 (06:33→20:27)
--- NOTE | 2019-06-17 07:12 | NUR ---
RECEIVED BEDSIDE REPORT FROM PM RN PT APPEARS STABLE AND IN NO APPARENT DISTRESS. ALL SAFETY MEASURES ARE IN PLACE WILL CONTINUE TO MONITOR. [T DAUGHTER AT BEDSIDE.
--- NOTE | 2019-06-17 07:25 | NUR ---
ENDORSED TO AM SHIFT NURSE IN STABLE CONDITION FOR CONTINUITY OF CARE.
[2019-06-17] MEDS: MAGNESIUM OXIDE 400 MG TAB PO SCH (08:00)
[2019-06-17] MEDS: LACTOBACILLUS RHAMNOSUS GG 1 EACH CAP PO SCH (08:01)
[2019-06-17] MEDS: ASCORBIC ACID 500 MG TAB PO SCH (08:01)
[2019-06-17] MEDS: ATORVASTATIN 20 MG TAB PO SCH (08:01)
[2019-06-17] MEDS: MEMANTINE 10 MG TAB PO SCH ×2 (08:01→20:28)
[2019-06-17] MEDS: hydrALAZINE 25 MG TAB PO SCH (08:01)
[2019-06-17] MEDS: LORATADINE 10 MG TAB PO SCH (08:01)
[2019-06-17] MEDS: ECOTRIN 81 MG TABEC PO SCH (08:02)
[2019-06-17] MEDS: amLODIPine 5 MG TAB PO SCH (08:02)
[2019-06-17] MEDS: HYDROcodone/APAP 7.5/325 MG 1 TAB PO PRN ×2 (08:02→20:31)
[2019-06-17] MEDS: glipiZIDE 10 MG TAB PO SCH ×2 (08:02→20:28)
[2019-06-17] MEDS: ARIPiprazole 10 MG TAB PO SCH (08:03)
[2019-06-17] MEDS: CHOLECALCIFEROL 1,000 IU TAB PO SCH (08:03)
--- NOTE | 2019-06-17 08:31 | NUR ---
PATIENT HAS BEEN SCREENED AND CATEGORIZED MODERATE NUTRITION RISK. PATIENT WILL BE SEEN WITHIN 3-5 DAYS OF ADMISSION. 06/19/19 06/21/[address]
[2019-06-17 08:50] VITALS: BP 124/90
--- NOTE | 2019-06-17 09:16 | NUR ---
FREQUENT ROUNDING ON PT PT APPEARS STABLE AND IN NO APPARENT DISTRESS. ALL SAFETY MEASURES ARE IN PLACE WILL CONTINUE TO MONITOR.
[2019-06-17] MEDS: GABAPENTIN 100 MG CAP PO SCH ×3 (09:41→17:25)
[2019-06-17] MEDS: LIDOCAINE 5% 1 EA PATCH TP SCH (10:39)
--- NOTE | 2019-06-17 11:23 | NUR ---
FREQUENT ROUNDING ON PT PT APPEARS STABLE AND IN NO APPARENT DISTRESS. ALL SAFETY MEASURES ARE IN PLACE WILL CONTINUE TO MONITOR.
--- NOTE | 2019-06-17 11:57 | NUR ---
DC [age] YRS OLD FEMALE PT WAS ADMITTED FROM [facility] WITH A DX OF L2 COMPRESSION FRACTURE AND UTI . PT HAS A HX OF DEMENTIA HTN GERD RECURRENT UTI DUE TO BLADDER SURGERY CKD AND DEPRESSION. PT IS WHEELCHAIR BOUND AT BASELINE. RECEIVED ROCEPHIN TORADOL FOR PAIN , URINE AND BLOOD CULTURE SENT TO LAB. CT OF ABD/PELVIS NO SIGNIFICANT CHANGES. DC PLAN TO GO BACK TO [facility] UP ON DISCHARGE. Addendum: 06/18/19 at 6654 by Davina Laughlin LATE ENTRY: WITH ORDER TO DC BACK TO [facility]. CONTACTED RAY OF [facility] AT [phone], PATIENT WILL GO TO ROOM 5A. CONTACTED ELLYN OF [facility], TRANSPORT AUTH [id number] WITH [facility]. CONTACTED [facility], ABLE TO SPEAK TO RASHEED. SENIOR USER EXPERIENCE ARCHITECT WILL BE AT 1900. PRIMARY ROBERT ZALDIVAR AND DR. WADE MADE AWARE.
[2019-06-17 12:30] VITALS: BP 133/57
--- NOTE | 2019-06-17 13:34 | NUR ---
FREQUENT ROUNDING ON PT PT APPEARS STABLE AND IN NO APPARENT DISTRES. ALL SAFETY MEASURES ARE IN PLACE
--- NOTE | 2019-06-17 15:34 | NUR ---
FREQUENT ROUNDING ON PT PT APPEARS STABLE AND IN NO APPARENT DISTRESS. ALL SAFETY MEASURES ARE IN PLACE WILL CONTINUE TO MONITOR
[2019-06-17 15:59] LABS: BASOPHILS % (AUTO) 0.2 % (0.0-2.0); EOSINOPHILS # (AUTO) 1.2 K/uL (0-0.4); EOSINOPHILS % (AUTO) 10.7 % (0.0-4.0); HEMATOCRIT 26.1 % (36-48); HEMOGLOBIN 8.6 g/dL (12.0-16.0); LYMPHOCYTES # (AUTO) 0.9 K/uL (2.5-16.5); LYMPHOCYTES % (AUTO) 7.9 % (20.5-51.1); MEAN CORPUSCULAR HEMOGLOBIN 31 pg (27-31); MEAN CORPUSCULAR HGB CONC 33 g/dL (33-37); MEAN CORPUSCULAR VOLUME 93.3 fL (80-94); MONOCYTES # (AUTO) 1.1 K/uL (0.8-1.0); MONOCYTES % (AUTO) 9.9 % (1.7-9.3); NEUTROPHILS % (AUTO) 71.3 % (42.2-75.2); PLATELET COUNT (AUTO) 199 K/uL (140-450); WHITE BLOOD COUNT (AUTO) 11.3 K/uL (4.8-10.8)
[2019-06-17] MEDS ORDERED: SODIUM FERRIC GLUCONATE 125 MG in NACL 0.9% 100 ML IV SCH (16:00)
--- NOTE | 2019-06-17 16:03 | NUR ---
FNS CONSULT HAS BEEN RECEIVED FOR DIABETES DIET EDUCATION. PATIENT HAS BEEN RE-SCREENED HIGH RISK AND WILL BE SEEN WITHIN 1-2 DAYS OF RECEIVING THE FNS CONSULT. YOLANDA GAONA RD
[2019-06-17 16:24] LABS: PROTHROMBIN TIME 10.1 secs (10.8-13.4)
[2019-06-17 16:29] LABS: ANION GAP 13.7 (8-16); CARBON DIOXIDE 23.9 mmol/L (21-32); CHLORIDE 105 mmol/L (98-107); GLUCOSE 147 mg/dL (74-106); POTASSIUM 4.6 mmol/L (3.5-5.1); SODIUM SERUM 138 mmol/L (136-145); UREA NITROGEN, BLOOD 24 mg/dL (7-18)
[2019-06-17 16:45] VITALS: BP 124/62
[2019-06-17 16:45] LABS: MAGNESIUM 1.4 mg/dL (1.8-2.4); PHOSPHORUS 2.8 mg/dL (2.5-4.9); THYROID STIMULATING HORMONE 1.07 uIU/mL (0.34-3.74)
--- NOTE | 2019-06-17 17:05 | NUR ---
FREQUENT ROUNDING ON PT PT APPEARS STABLE AND IN NO APPARENT DISTRESS/ ALL SAFETY MEASURES ARE IN PLACE
[2019-06-17 19:26] LABS: MAGNESIUM 1.3 mg/dL (1.8-2.4)
--- NOTE | 2019-06-17 19:35 | NUR ---
RECEIVED FROM AM RN IN BED AWAEK AND WITH DAUGHTER AT BEDSIDE. CARE PLANS FOR THE NIGHT DISCUSSED WITH THEM AND CALL LIGHT WITH IN REACH. NO COMPLAINTS DONE AT THIS TIME.
--- NOTE | 2019-06-17 19:37 | NUR ---
ENDORSED PT TO PM RN PT APPEARS STABLE AND IN NO APPARENT DISTRESS. ALL SAFETY MEASURES ARE IN PLACE WILL CONTINUE TO MONITOR
[2019-06-17] MEDS ORDERED: DONEPEZIL 10 MG TAB PO SCH (21:00)
[2019-06-17] MEDS ORDERED: LISINOPRIL 20 MG TAB PO SCH (21:00)
[2019-06-18] VITALS: BP 125/68
[2019-06-18] MEDS: NACL 0.9% 1,000 ML IV SCH ×2 (02:45→03:59)
[2019-06-18] MEDS: HYDROcodone/APAP 7.5/325 MG 1 TAB PO PRN ×2 (03:49→18:28)
[2019-06-18 03:50] VITALS: BP 136/64
--- NOTE | 2019-06-18 03:52 | NUR ---
PT. MEDICATED WITH NORCO P.O. RT PT. IS BEING CLEANED BY CNAS RT WET WITH URINE. PT. COMPLAINED OF CHRONIC BACK PAIN. DAUGHTER AT BEDSIDE.
[2019-06-18] MEDS: BLOOD GLUCOSE MONITORING 1 DEV DEV FS SCH ×3 (06:03→16:45)
[2019-06-18 06:09] LABS: ANION GAP 11.9 (8-16); CARBON DIOXIDE 23.3 mmol/L (21-32); CHLORIDE 108 mmol/L (98-107); GLUCOSE 117 mg/dL (74-106); POTASSIUM 4.2 mmol/L (3.5-5.1); SODIUM SERUM 139 mmol/L (136-145); UREA NITROGEN, BLOOD 18 mg/dL (7-18)
[2019-06-18 07:07] LABS: FOLIC ACID 6.8 ng/mL (>3.0)
--- NOTE | 2019-06-18 07:15 | NUR ---
REPORT ENDORSED TO AM RN WITH NO COMPLAINTS DONE. DAUGHTER AT BEDSIDE 17/02.
[2019-06-18 07:19] LABS: BASOPHILS % (AUTO) 0.1 % (0.0-2.0); EOSINOPHILS # (AUTO) 1.2 K/uL (0-0.4); EOSINOPHILS % (AUTO) 12.7 % (0.0-4.0); HEMATOCRIT 27.7 % (36-48); HEMOGLOBIN 9.3 g/dL (12.0-16.0); LYMPHOCYTES # (AUTO) 0.7 K/uL (2.5-16.5); LYMPHOCYTES % (AUTO) 7.6 % (20.5-51.1); MEAN CORPUSCULAR HEMOGLOBIN 32 pg (27-31); MEAN CORPUSCULAR HGB CONC 33 g/dL (33-37); MEAN CORPUSCULAR VOLUME 94.2 fL (80-94); MONOCYTES # (AUTO) 0.8 K/uL (0.8-1.0); MONOCYTES % (AUTO) 8.8 % (1.7-9.3); NEUTROPHILS # (AUTO) 6.8 K/uL (1.8-7.7); NEUTROPHILS % (AUTO) 70.8 % (42.2-75.2); PLATELET COUNT (AUTO) 194 K/uL (140-450); RED BLOOD CELL COUNT(AUTO) 2.94 MIL/uL (4.20-5.40); RED CELL DISTRIBUTION WIDTH 14.3 % (11.6-13.7); WHITE BLOOD COUNT (AUTO) 9.6 K/uL (4.8-10.8)
--- NOTE | 2019-06-18 07:20 | NUR ---
RECEIVE REPORT FROM PM NURSE. PT IS STABLE. DAUGHTER AT SLEEP AT THE BEDSIDE.
[2019-06-18 08:00] VITALS: BP 115/49
[2019-06-18] MEDS: hydrALAZINE 25 MG TAB PO SCH (09:00)
[2019-06-18] MEDS ORDERED: CALCIUM CARB/VIT-D 500 MG/200 IU 1 TAB PO SCH (09:00)
[2019-06-18] MEDS ORDERED: MULTIVITAMIN 1 TAB PO SCH (09:00)
[2019-06-18] MEDS: amLODIPine 5 MG TAB PO SCH (09:00)
[2019-06-18] MEDS ORDERED: NON-FORMULARY ITEM (Calcium Carbonate/Vitamin D3 (Oyster Shell Calcium-Vit D Tab) 1 TAB) PO SCH (09:00)
[2019-06-18] MEDS ORDERED: [UNRECOGNIZED DRUG - OTHER] PO SCH (09:00)
--- NOTE | 2019-06-18 09:30 | NUR ---
PT IS ASLEEP IN BED. PT FAMILY IS ALSO AT BEDSIDE. CALL LIGHT WITH IN REACH.
[2019-06-18] MEDS: GABAPENTIN 100 MG CAP PO SCH ×3 (09:45→17:43)
[2019-06-18] MEDS: glipiZIDE 10 MG TAB PO SCH (09:46)
[2019-06-18] MEDS: MAGNESIUM OXIDE 400 MG TAB PO SCH (09:46)
[2019-06-18] MEDS: LORATADINE 10 MG TAB PO SCH (09:47)
[2019-06-18] MEDS: ECOTRIN 81 MG TABEC PO SCH (09:47)
[2019-06-18] MEDS: MEMANTINE 10 MG TAB PO SCH (09:48)
[2019-06-18] MEDS: ATORVASTATIN 20 MG TAB PO SCH (09:48)
[2019-06-18] MEDS: LACTOBACILLUS RHAMNOSUS GG 1 EACH CAP PO SCH (09:49)
[2019-06-18] MEDS: ARIPiprazole 10 MG TAB PO SCH (09:49)
[2019-06-18] MEDS: ASCORBIC ACID 500 MG TAB PO SCH (09:50)
[2019-06-18] MEDS: CHOLECALCIFEROL 1,000 IU TAB PO SCH (09:51)
[2019-06-18] MEDS: LIDOCAINE 5% 1 EA PATCH TP SCH (10:08)
[2019-06-18] MEDS ORDERED: ROC1PM IV (10:54)
[2019-06-18] MEDS ORDERED: LACT1.4C PO (10:54)
[2019-06-18] MEDS ORDERED: HYDR-5122 PO (10:55)
[2019-06-18] MEDS ORDERED: DSS/1TAB3 PO (11:16)
--- NOTE | 2019-06-18 12:05 | NUR ---
PT IS ASLEEP IN BED. CALL LIGHT WITHIN REACH. RESPIRATION ARE EVEN AND UNLABORED. PT'S FAMILY IN ROOM VISITING.
--- NOTE | 2019-06-18 13:08 | NUR ---
06/18/19 RD INITIAL ASSESSMENT COMPLETED PLEASE REFER TO NUTRITION ASSESSMENT UNDER CARE ACTIVITY FOR ESTIMATED NUTRITIONAL NEEDS. 1. CONTINUE CCHO 60GM DIET TOLERATED 2. RECOMMEND SOFT DIET 3. RD PROVIDED DIABETES NUTRITION EDUCATION TO PATIENT AND FAMILY 4. RD TO FOLLOW-UP 5-7 DAYS, LOW RISK YOLANDA GAONA, RD
--- NOTE | 2019-06-18 14:30 | NUR ---
PT IS ASLEEP IN HER BED. CALL LIGHT WITHIN REACH. BED IN LOW POSITION. RESPIRATIONS ARE EVEN AND UNLABORED.
[2019-06-18 16:00] VITALS: BP 137/63
--- NOTE | 2019-06-18 16:33 | NUR ---
Wood Heel Flap Rubber Note: Per patient's son Jim Roberts , he would like patient to return to [facility] upon discharge.
--- NOTE | 2019-06-18 17:10 | NUR ---
FREQUENT ROUNDS ON THE PT. PT IS SLEEPING IN BED. PT STABLE, RESPIRATION ARE EVEN AND UNLABORED. DAUGHTER AT BEDSIDE. CALL LIGHT WITHIN REACH.
[2019-06-18] MEDS ORDERED: CHLORHEXADINE GLUC 2% CLOTH TP SCH (18:00)
[2019-06-18] MEDS ORDERED: BACTO NS (18:06)
[2019-06-18] MEDS ORDERED: CHLO1TOW TP (18:06)
[2019-06-18] MEDS ORDERED: MUPIROCIN CA NASAL 2% 1GM TUBE NS SCH (18:30)
--- NOTE | 2019-06-18 19:20 | NUR ---
GAVE REPORT TO PM NURSE, PT IS STABLE IN BED. DAUGHTER AT THE BEDSIDE. PT AND FAMILY ARE AWAITING FOR TRANSFER TO [facility].
--- NOTE | 2019-06-18 19:21 | NUR ---
RECEIVE REPORT FROM PM NURSE. PT IS STABLE. DAUGHTER AT THE BEDSIDE. PT IS WAITING TRANSPORTATION TO BE DISCHARGED.
--- NOTE | 2019-06-18 19:45 | NUR ---
TRANSPORTATION TEAM CAME. REMOVED NAME BAND. PT LEFT.
== END 2019-06-18 19:55 | DRG 690 ==
LOC: MED 17:25 → MMU 20:48 → UNDOADMIN 20:48 → MTU 20:48
PROVIDERS: ADMIT Family Medicine; ATTEND Family Medicine
DX: N12 Tubulo-interstitial nephritis, not specified as acute or chronic (principal); E44.0 Moderate protein-calorie malnutrition; J98.11 Atelectasis; D68.59 Other primary thrombophilia; M48.56XA Collapsed vertebra, not elsewhere classified, lumbar region, initial encounter for fracture; Z68.33 Body mass index [BMI] 33.0-33.9, adult; E11.65 Type 2 diabetes mellitus with hyperglycemia; K21.9 Gastro-esophageal reflux disease without esophagitis; N18.2 Chronic kidney disease, stage 2 (mild); I12.9 Hypertensive chronic kidney disease with stage 1 through stage 4 chronic kidney disease, or unspecified chronic kidney disease; E78.5 Hyperlipidemia, unspecified; F32.9 Major depressive disorder, single episode, unspecified; Z99.3 Dependence on wheelchair; Z90.49 Acquired absence of other specified parts of digestive tract; Z80.8 Family history of malignant neoplasm of other organs or systems; Z80.0 Family history of malignant neoplasm of digestive organs; Z80.41 Family history of malignant neoplasm of ovary; E11.22 Type 2 diabetes mellitus with diabetic chronic kidney disease; E11.40 Type 2 diabetes mellitus with diabetic neuropathy, unspecified; E64.9 Sequelae of unspecified nutritional deficiency; D63.8 Anemia in other chronic diseases classified elsewhere; G30.9 Alzheimer's disease, unspecified; F02.80 Dementia in other diseases classified elsewhere, unspecified severity, without behavioral disturbance, psychotic disturbance, mood disturbance, and anxiety; Z22.322 Carrier or suspected carrier of Methicillin resistant Staphylococcus aureus
CPT/HCPCS: 36415; 71045; 80048; 80053; 81003; 82306; 82607; 82746; 82948; 83036; 83540; 83605; 83690; 83735; 84100; 84443; 85025; 85045; 85610; 85730; 87040; 87081; 87086; 87186; 93005; 96365; 96375; 99285; J0696; J1815; J2916; J3010; J7030; J7060; Q0092

== ENCOUNTER 2019-07-16 21:43 | Inpatient (IN) | payer OTHER ==
[~2019-07-16] VITALS: Ht 154.9 cm; Wt 54.4 kg
[2019-07-16 21:43] VITALS: BP 108/60
[~2019-07-16 21:43] MED LIST changes: -ALEN70TA PO; +ARIP5TAB8 PO; +ASCO500T45 PO; -ATOR10TA PO; +ATOR20TA PO; +BACTO NS; +CHLO1TOW TP; -CLOP75TA PO; -CRAN450C PO; -DEXT1CAP3 PO; -DIT5 PO; -DIVA250T PO; -DOCU100C5 PO; +DONE10TA10 PO; -DONE5TAB6 PO; +DSS/1TAB3 PO; -FERR325E14 PO; -FLOR250 PO; -FURO-572 PO; +GLIP10TA3 PO; +HYDR-5122 PO; +LACT1.4C PO; -LACT1CAP71 PO; +LORA10TA19 PO; -MECL-272 PO; -MELO7.5T11 PO; +MEMA5TAB PO; -METR500T1 PO; -NITR0.4S14 SL; +OMEG1CAP21 PO; -POTA8TER12 PO; +ROC1PM IV; -SERT50TA PO; -SULF-59 PO; -TRAZ-343 PO; -VITA20002 PO; +VITD1000 PO; +[UNRECOGNIZED DRUG - CODE] TP
--- NOTE | 2019-07-16 21:47 | NUR ---
PT BIBA BLS TO ER BED 11
--- NOTE | 2019-07-16 21:50 | NUR ---
88 YEAR OLD FEMALE BIBA FROM [facility] FOR LETHARGY. PATIENT IS LETHARGIC, AOX1 TO NAME. GCS 12 (E3, V4, M5). BLOOD SUGAR 255. PUPPILS 1MM BILATERAL. PATIENT BREATHING EVEN AND UNLABORED. SKIN IS COOL AND DRY. BED IN LOWEST POSITION, LOCKED, BED RAIL UPX1.
[2019-07-16] MEDS ORDERED: NACL 0.9% 1,000 ML IV SCH (22:00)
[2019-07-16] MEDS ORDERED: cefTRIAXone 1,000 MG in DEXT 5% MINI-BAG PLUS 50 ML IV ONE (22:00)
[2019-07-16] MEDS ORDERED: cefTRIAXone 1,000 MG VIAL ONE (22:19)
--- NOTE | 2019-07-16 22:45 | NUR ---
EXPLAINED INDICATION FOR STRAIGHT CATH TO PT'S DAUGHTER WHO VERBALIZED UNDERSTANDING. ADDICTION PSYCHIATRIST PERFORMED STRAIGHT CATH PROCEDURE WITH NO COMPLICATIONS, PT TOLERATED WELL, 800ML CLEAR URINE COLLECTED, UA SENT TO LAB.
[2019-07-16 23:04] LABS: BASOPHILS % (AUTO) 0.1 % (0.0-2.0); EOSINOPHILS # (AUTO) 0.8 K/uL (0-0.4); EOSINOPHILS % (AUTO) 10.9 % (0.0-4.0); HEMATOCRIT 27.4 % (36-48); HEMOGLOBIN 8.8 g/dL (12.0-16.0); LYMPHOCYTES # (AUTO) 0.6 K/uL (2.5-16.5); LYMPHOCYTES % (AUTO) 7.4 % (20.5-51.1); MEAN CORPUSCULAR HEMOGLOBIN 30 pg (27-31); MEAN CORPUSCULAR HGB CONC 32 g/dL (33-37); MEAN CORPUSCULAR VOLUME 93.3 fL (80-94); MONOCYTES # (AUTO) 0.3 K/uL (0.8-1.0); MONOCYTES % (AUTO) 3.7 % (1.7-9.3); PLATELET COUNT (AUTO) 164 K/uL (140-450); RED BLOOD CELL COUNT(AUTO) 2.94 MIL/uL (4.20-5.40); RED CELL DISTRIBUTION WIDTH 15.3 % (11.6-13.7); WHITE BLOOD COUNT (AUTO) 7.7 K/uL (4.8-10.8)
[2019-07-16 23:08] LABS: APPEARANCE,URINE HAZY (CLEAR); BILIRUBIN,URINE NEGATIVE (NEGATIVE); BLOOD, URINE NEGATIVE (NEGATIVE); COLOR,URINE YELLOW (YELLOW); LEUKOCYTE ESTERASE ,URINE NEGATIVE (NEGATIVE); NITRITE, URINE NEGATIVE (NEGATIVE); PH,URINE 5.5 (5.0-9.0); UGLUCOSE TRACE (NEGATIVE)
[2019-07-16 23:26] LABS: NEUTROPHILS % (AUTO) 77.9 % (42.2-75.2)
[2019-07-16 23:30] LABS: ALBUMIN 2.5 g/dL (3.4-5.0); ANION GAP 13.4 (8-16); ASPARTATE AMINOTRANSFERASE 15 U/L (15-37); CARBON DIOXIDE 27.3 mmol/L (21-32); CHLORIDE 111 mmol/L (98-107); CREATININE 1.5 mg/dL (0.6-1.3); GLUCOSE 275 mg/dL (74-106); POTASSIUM 5.7 mmol/L (3.5-5.1); SODIUM SERUM 146 mmol/L (136-145); TOTAL BILIRUBIN 0.1 mg/dL (0.0-1.0)
[2019-07-16 23:33] LABS: UREA NITROGEN, BLOOD 68 mg/dL (7-18)
--- NOTE | 2019-07-16 23:35 | NUR ---
LAB CALLED AND SAID BUN LEVEL IS 68. AWARE.
[2019-07-16 23:36] LABS: RBC,URINE 0-5 /HPF (0-5); WBC,URINE 0-5 /HPF (0-5)
--- NOTE | 2019-07-17 00:23 | NUR ---
PATIENT RESTING WITH EYES CLOSED. BREATHING EVEN AND UNLABORED, SKIN WARM AND DRY. DAUGHTER AT BEDSIDE. WILL CONTINUE TO MONITOR.
[2019-07-17 00:29] LABS: BARBITURATE, URINE NEG. ng/ml (NEG <=200); BENZODIAZEPINE, URINE NEG. ng/mL (NEG <=200); CANNABINOID, URINE NEG. ng/mL (NEG <=50); COCAINE, URINE NEG. ng/mL (NEG <=300); OPIATE, URINE NEG. ng/mL (NEG <=2000); PHENCYCLIDINE SCREEN,URINE NEG. ng/mL (NEG <=25)
[2019-07-17] MEDS ORDERED: DICL3GEL5 TP (00:53)
[2019-07-17] MEDS ORDERED: FERR325E14 PO (00:53)
[2019-07-17] MEDS ORDERED: ATA10 PO (00:53)
[2019-07-17] MEDS ORDERED: NITR0.4T2 SL (00:53)
[2019-07-17] MEDS ORDERED: BISA-188 RC (00:53)
[2019-07-17] MEDS ORDERED: MAGN400S60 PO (00:53)
[2019-07-17] MEDS ORDERED: KETO2CRE3 TP (00:53)
[2019-07-17] MEDS ORDERED: LACT1CAP83 PO (00:53)
[2019-07-17] MEDS ORDERED: ACET-2619 PO (00:53)
--- NOTE | 2019-07-17 00:55 | NUR ---
PT TAKEN TO CT VIA NICOLE
--- NOTE | 2019-07-17 01:14 | NUR ---
PT RETURNED [facility]IA [employer] [facility]
--- NOTE | 2019-07-17 01:36 | NUR ---
REPORT RECEIVED FROM ROBERT BELL. TRANSFER OF CARE AT THIS TIME.
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
--- NOTE | 2019-07-17 01:45 | NUR ---
RESTING QUIETLY IN BED WITH EYES CLOSED. AROUSABLE TO PAINFUL STIMULI. DAUGHTER SITTING NEARBY. VSS. NO S/SX DISTRESS AT THIS TIME. Addendum: 07/17/19 at 0236 by [facility] PT IS OBTUNDED.
[2019-07-17] MEDS ORDERED: ONDANSETRON 4 MG/2 ML VIAL IM/IVP PRN (01:50)
[2019-07-17] MEDS ORDERED: ACETAMINOPHEN 325 MG TAB PO PRN (01:50)
[2019-07-17] MEDS ORDERED: DOCUSATE SODIUM 100 MG GELCAP PO PRN (01:50)
[2019-07-17] MEDS ORDERED: HYDROcodone/APAP 5/325 MG 1 TAB TAB PO PRN (01:50)
[2019-07-17] MEDS ORDERED: MORPHINE SULFATE 2 MG/ML SYR IVP PRN (01:50)
[2019-07-17] MEDS ORDERED: NACL 0.9% 1,000 ML IV SCH (02:00)
[2019-07-17 02:20] VITALS: BP 124/57
--- NOTE | 2019-07-17 02:20 | NUR ---
RECEIVED REPORT FROM ED RN FOR PT'S CONTINUITY OF CARE. PT IS ALOC, DAUGHTER AT BEDSIDE, PT IS ON ROOM AIR, ON PUZZLE ASSEMBLER, HAS RIGHT AC 20G, FLACC - 0, ON CONTACT PRECAUTION FOR HX MRSA NARES, FALL PRECAUTION IN PLACE. EXPLAINED TO DAUGHTER THE CON[employer]IN[employer] MANAGER ROUTINE, SHE VERBALIZED UNDERSTANDING. DAUGHTER WAS ASKING FOR RECLINER, WHOLESALE REPRESENTATIVE AWARE, INFORMED DAUGHTER THAT WE NEED SPECIAL APPROVAL SINCE PT IS ON ISOLATION. DAUGHTER VERBALIZED UNDERSTANDING. WILL MONITOR PT THROUGHOUT SHIFT.
--- NOTE | 2019-07-17 02:20 | NUR ---
Patient will be admitted to care of Dr. Carter. Admited to TELE. Will go to room 107A. Belongings list completed. Report to ROBERT Merino.
[2019-07-17 02:23] LABS: CHOL/HDL RATIO 2.3 (1-4.5); MAGNESIUM 1.9 mg/dL (1.8-2.4); PHOSPHORUS 5.3 mg/dL (2.5-4.9); THYROID STIMULATING HORMONE 1.64 uIU/mL (0.34-3.74)
[2019-07-17] MEDS ORDERED: SODIUM ZIRCONIUM CYCLOSILICATE 10 GM POWD.PACK PO SCH ×2 (03:00→12:24)
--- NOTE | 2019-07-17 03:00 | NUR ---
ATTEMPTED TO ADMINISTER SCHEDULED PO MEDICATION. PT UNABLE TO SWALLOW. MEDICATION NOT ADMINISTERED. MD AWARE.
[2019-07-17] MEDS ORDERED: DEXTROSE 50% 50 ML SYR IVP PRN (03:10)
[2019-07-17 04:00] VITALS: BP 131/60
[2019-07-17] MEDS ORDERED: CALCIUM ACETATE 667 MG TAB PO SCH (04:00)
--- NOTE | 2019-07-17 04:30 | NUR ---
PT ASLEEP, TRIED TO AROUSE PT TO TAKE MEDICATION. PT UNABLE TO SWALLOW. PT ON NPO STATUS NOW.
--- NOTE | 2019-07-17 06:00 | NUR ---
BLOOD GLUCOSE CHECKED AND CHARTED. NO COVERAGE NEEDED.
[2019-07-17] MEDS: BLOOD GLUCOSE MONITORING 1 DEV DEV FS SCH ×4 (06:27→21:50)
--- NOTE | 2019-07-17 06:30 | NUR ---
PT LYING DOWN ASLEEP WITH NO SIGNS OF DISTRESS. WILL ENDORSE TO AM SHIFT RN FOR PT'S CONTINUITY OF CARE.
--- NOTE | 2019-07-17 07:20 | NUR ---
RECEIVED REPORT FROM NIGHT NURSE. PT IS ASLEEP, ABLE TO AROUSE. RESPIRATION EVEN AND UNLABORED. DAUGHTER AT BEDSIDE. IV INTACT AND PATENT, IVF NS INFUSING AT 100ML/HR. BED IN LOW POSITION. BED ALARM ON. CALL LIGHT WITHIN REACH.
[2019-07-17 08:00] VITALS: BP 109/53
[2019-07-17] MEDS: glipiZIDE 10 MG TAB PO SCH ×2 (08:00→17:25)
[2019-07-17] MEDS: CHOLECALCIFEROL 1,000 IU TAB PO SCH (08:47)
[2019-07-17] MEDS: MULTIVITAMIN/MINERALS 1 TAB PO SCH (08:48)
[2019-07-17] MEDS: ARIPiprazole 10 MG TAB PO SCH (08:48)
[2019-07-17] MEDS: ASCORBIC ACID 500 MG TAB PO SCH (08:48)
[2019-07-17] MEDS: FERROUS SULFATE 325 MG TABEC PO SCH ×2 (08:49→21:50)
[2019-07-17] MEDS: ATORVASTATIN 20 MG TAB PO SCH (08:49)
[2019-07-17] MEDS: ECOTRIN 81 MG TABEC PO SCH (08:49)
[2019-07-17] MEDS: MAGNESIUM OXIDE 400 MG TAB PO SCH (08:50)
[2019-07-17] MEDS: MEMANTINE 10 MG TAB PO SCH ×2 (08:50→21:50)
[2019-07-17] MEDS: GABAPENTIN 100 MG CAP PO SCH ×3 (08:50→17:25)
[2019-07-17] MEDS: CALCIUM CARB/VIT-D 500 MG/200 IU 1 TAB PO SCH (08:51)
[2019-07-17] MEDS ORDERED: amLODIPine 5 MG TAB PO SCH (09:00)
[2019-07-17] MEDS ORDERED: hydrALAZINE 25 MG TAB PO SCH (09:00)
[2019-07-17] MEDS ORDERED: LORATADINE 10 MG TAB PO SCH (09:00)
[2019-07-17] MEDS: DEXT 5% / NACL 0.45% 1,000 ML IV SCH ×2 (09:22→21:25)
[2019-07-17] MEDS: KETOCONAZOLE 2% 15 GM TUBE TP SCH (09:23)
--- NOTE | 2019-07-17 09:35 | NUR ---
PT STILL NPO, INCLUDING MEDICATIONS, PT UNABLE TO SWALLOW. PT UNABLE TO FOLLOW COMMANDS, PT STILL HAVE ALTERED MENTAL STATUS. TRAVELING PASSENGER AGENT AT BEDSIDE FOR XRAY TO ABDOMEN. BED ALARM ON, BED IN LOW POSITION. WILL CONTINUE TO MONITOR.
--- NOTE | 2019-07-17 10:00 | NUR ---
PAGEJonathan WILEY, PT FOR ORDERS FOR PATIENT TO HAVE PT AND ST EVAL TODAY.
--- NOTE | 2019-07-17 10:48 | NUR ---
ST UNAVAILABLE TODAY FOR SWALLOW EVALUATION. RECEIVED ORDER TO DO BEDSIDE NURSING SWALLOW EVALUATION. PATIENT ABLE TO TOLERATE APPLE SAUCE, JELLO AND NECTAR THICK LIQUID. DR. WADE MADE AWARE.
--- NOTE | 2019-07-17 11:59 | NUR ---
VS STABLE AT THIS TIME. PATIENT IS ASLEEP, EASILY AROUSABLE. DR. WADE AT BEDSIDE, DISCUSSED PLANS FOR PATIENT WITH FAMILY.
[2019-07-17 12:00] VITALS: BP 101/49
--- NOTE | 2019-07-17 14:03 | NUR ---
PATIENT HAS BEEN SCREENED AND CATEGORIZED HIGH NUTRITION RISK. PATIENT WILL BE SEEN WITHIN 1-2 DAYS OF ADMISSION. 07/17/19 - 07/18/19 OLVIN MARTINEZ MBA, RD
--- NOTE | 2019-07-17 14:32 | NUR ---
PATIENT'S FAMILY AT BEDSIDE. PT IS ASLEEP, ABLE TO AROUSE BUT FALLS EASILY BACK TO SLEEP. RESPIRATIONS EVEN AND UNLABORED. IV INTACT AND PATENT TO RIGHT AC WITH IVF D5 1/2 NS @ 80ML/HR. TOLERATING WELL. NO S/S OF DISTRESS NOTED. BED IN LOW POSITION. CALL LIGHT WITHIN REACH.
[2019-07-17 16:00] VITALS: BP 121/51
--- NOTE | 2019-07-17 16:00 | NUR ---
PATIENT'S FAMILY STILL AT BEDSIDE. PT IS ASLEEP, ABLE TO AROUSE BUT FALLS EASILY BACK TO SLEEP. RESPIRATIONS EVEN AND UNLABORED. IV INTACT AND PATENT TO RIGHT AC WITH IVF D5 1/2 NS @ 80ML/HR. TOLERATING WELL. NO S/S OF DISTRESS NOTED. BED IN LOW POSITION. BED ALARM ON. CALL LIGHT WITHIN REACH.
[2019-07-17] MEDS ORDERED: BISACODYL 10 MG SUPP RC SCH (16:55)
[2019-07-17] MEDS: SENNA 8.6 MG TAB PO SCH (17:33)
[2019-07-17] MEDS: INSULIN LISPRO SLIDING SCALE 100 UNITS/ML VIAL SUBQ PRN (17:33)
--- NOTE | 2019-07-17 17:36 | NUR ---
07/17/19 RD INITIAL ASSESSMENT COMPLETED PLEASE REFER TO NUTRITION ASSESSMENT UNDER CARE ACTIVITY FOR ESTIMATED NUTRITIONAL NEEDS. RD RECOMMENDATIONS: 1. RECOMMEND CONTINUE CURRENT PO DIET 60G CCHO, 2GN NA, PUREE NECTAR THICK 2. ASSIST / ENCOURAGE PT WITH PO DIET NEEDED 3. PD TO RE-EVALUATE DIET AND MODIFY IF NEEDED, WHEN SWALLOW EVAL BECOMES AVAILABLE IN CHART. 4. F/U 2-3 DAYS; HIGH RISK OLVIN MARTINEZ MBA, RD
--- NOTE | 2019-07-17 17:48 | NUR ---
SCHEDULED MEDS GIVEN. PATIENT'S KUB RESULT SHOWS COLONIC LARGE STOOL, DULCOLAX GIVEN ORDRED. PATIENT ABLE TO TOLERATE PO MEDICATIONS, WITH FREQUENT PROMPTING. PATIENT'S HOB ELEVATED, TO PREVENT ASPIRATION. NO S/S OF DISTRESS NOTED. BED ALARM ON. WILL CONTINUE TO MONITOR.
[2019-07-17 18:28] LABS: ALBUMIN 2.3 g/dL (3.4-5.0); ANION GAP 14.5 (8-16); ASPARTATE AMINOTRANSFERASE 14 U/L (15-37); CARBON DIOXIDE 23.7 mmol/L (21-32); CHLORIDE 114 mmol/L (98-107); CREATININE 1.2 mg/dL (0.6-1.3); GLUCOSE 181 mg/dL (74-106); POTASSIUM 5.2 mmol/L (3.5-5.1); SODIUM SERUM 147 mmol/L (136-145); TOTAL BILIRUBIN 0.1 mg/dL (0.0-1.0); UREA NITROGEN, BLOOD 55 mg/dL (7-18)
--- NOTE | 2019-07-17 19:03 | NUR ---
PATIENT IS IN STABLE CONDITION. WILL ENDORSE TO NIGHT NURSE FOR CONTINUITY OF CARE.
--- NOTE | 2019-07-17 19:05 | NUR ---
IRIS. SITTING IN BED, AWAKE, A/OX2, CONFUSED AT TIMES, UNCOOPERATIVE. VERBALIZED SHE DOES NOT WANT SOMEBODY WATCHING HER, WANTS TO GO BACK TO HER HOME. REORIENTED TO HOSPITAL SETTING AND EXPLAINED SHE IS NOT YET GOING HOME BUT FOR TRANSFER TO A FACILITY. DOES NOT LISTENED TO EXPLANATION, GETS UPSET WITH NURSE. 1:1 SITTER WATCHING PATIENT. WILL CONTINUE TO MONITOR AND ENSURE SAFETY DURING THE SHIFT. Addendum: 07/17/19 at 1948 by Jessica Mccain LVN CORRECTION: THIS CHARTING IS NOT FOR THIS PATIENT.
--- NOTE | 2019-07-17 19:05 | NUR ---
RECD. RESTING IN BED SLEEPING COMFORTABLY, EASILY WAKES UP WHEN NAME CALLED AND ARM TOUCHED. SEEMS DROWSY, WENT BACK TO SLEEP. RESPIRATION EVEN AND UNLABORED. IV OF D51/2 NS INFUSING AT 80 ML/HR, RIGHT AC G22. SAFETY MEASURES ENFORCED. BED AT THE LOWEST POSITION, CALL LIGHT IN REACH. BED ON ALARM. NO APPEARANCE OF PAIN NOTED, FLACC - 0.
--- NOTE | 2019-07-17 19:30 | NUR ---
Patient's Plan of Care was discussed and reviewed with HAND GLUER AND SLICER: LINCOLN DICKERSON
[2019-07-17 20:00] VITALS: BP 91/41
[2019-07-17] MEDS ORDERED: MINERAL OIL 135 ML ENEM RC SCH (20:00)
--- NOTE | 2019-07-17 20:20 | NUR ---
CLEANSED AND REPOSITIONED IN BED WITH PILLOWS BY CNAs FOR COMFORT. HOB ELEVATED 35 DEGREES, ASPIRATION PRECAUTION.
[2019-07-17] MEDS ORDERED: hydrOXYzine HCL 10 MG TAB PO SCH (21:00)
[2019-07-17] MEDS ORDERED: LISINOPRIL 20 MG TAB PO SCH (21:00)
[2019-07-17 21:20] LABS: ANION GAP 11.8 (8-16); CARBON DIOXIDE 25.2 mmol/L (21-32); CHLORIDE 117 mmol/L (98-107); CREATININE 1.2 mg/dL (0.6-1.3); SODIUM SERUM 149 mmol/L (136-145); UREA NITROGEN, BLOOD 55 mg/dL (7-18)
--- NOTE | 2019-07-17 21:45 | NUR ---
PATIENT BLOOD SUGAR 38. PATIENT IS RESPONSIVE AND ABLE TO FOLLOW COMMANDS SUCH OPEN EYES AND SQUEEZE MY FINGER. ADMINISTERED D50. WILL RECHECK BLOOD SUGAR IN 15MINS.
[2019-07-17] MEDS: DONEPEZIL 10 MG TAB PO SCH (21:51)
[2019-07-17 22:03] LABS: GLUCOSE 40 mg/dL (74-106)
--- NOTE | 2019-07-17 22:15 | NUR ---
BS CHECKED - 153, PT IS ASYMPTOMATIC. ABLE TO TAKE NIGHT MEDS WITH APPLE SAUCE. WENT BACK TO SLEEP AFTER TAKING MEDS. WILL CONTINUE TO MONITOR.
[2019-07-18] VITALS: BP 100/51
[2019-07-18] MEDS: DEXT 5% / NACL 0.45% 1,000 ML IV SCH ×2 (00:59→22:07)
[2019-07-18] MEDS ORDERED: LACTULOSE 20 GM/30 ML UDC PO SCH (01:00)
--- NOTE | 2019-07-18 01:50 | NUR ---
STILL NO BM, MEDICATED WITH LACTULOSE ORDERED BY .
[2019-07-18 04:00] VITALS: BP 101/42
--- NOTE | 2019-07-18 05:00 | NUR ---
HAD LARGE LOOSE BM. CLEANSED AND REPOSITIONED IN BED WITH PILLOWS.
--- NOTE | 2019-07-18 06:00 | NUR ---
DIFFICULT TO WAKE UP BUT RESPONDS TO PAINFUL STIMULI. NO RESPIRATORY DISTRESS NOTED.
[2019-07-18] MEDS: BLOOD GLUCOSE MONITORING 1 DEV DEV FS SCH ×4 (06:20→19:46)
--- NOTE | 2019-07-18 07:15 | NUR ---
RECEIVED BEDSIDE REPORT FROM NIGHT NURSE. PT IN BED, ASLEEP RESPIRATION EVEN AND UNLABORED. IV INTACT TO RIGHT AC WITH IVF D5 HALF NS INFUSING AT 80ML/HR. CALL LIGHT WITHIN REACH. BED ALARM ON.
--- NOTE | 2019-07-18 07:15 | NUR ---
CONDITION REMAIN STABLE. ENDORSED TO AM SHIFT NURSE FOR CONTINUITY OF CARE.
[2019-07-18 07:33] LABS: HEMATOCRIT 26.3 % (36-48); HEMOGLOBIN 8.4 g/dL (12.0-16.0); MEAN CORPUSCULAR HEMOGLOBIN 30 pg (27-31); MEAN CORPUSCULAR HGB CONC 32 g/dL (33-37); MEAN CORPUSCULAR VOLUME 93.9 fL (80-94); PLATELET COUNT (AUTO) 155 K/uL (140-450); RED CELL DISTRIBUTION WIDTH 15.3 % (11.6-13.7); WHITE BLOOD COUNT (AUTO) 10.4 K/uL (4.8-10.8)
[2019-07-18 07:46] LABS: ANION GAP 14.3 (8-16); CARBON DIOXIDE 24.1 mmol/L (21-32); CHLORIDE 115 mmol/L (98-107); CREATININE 1.3 mg/dL (0.6-1.3); GLUCOSE 141 mg/dL (74-106); POTASSIUM 5.4 mmol/L (3.5-5.1); SODIUM SERUM 148 mmol/L (136-145); UREA NITROGEN, BLOOD 51 mg/dL (7-18)
[2019-07-18 07:50] LABS: MAGNESIUM 1.7 mg/dL (1.8-2.4); PHOSPHORUS 3.5 mg/dL (2.5-4.9)
[2019-07-18] MEDS: glipiZIDE 10 MG TAB PO SCH (07:56)
[2019-07-18 08:00] VITALS: BP 106/44
[2019-07-18 08:07] LABS: BASOPHILS % (MANUAL) 0 % (0-2); EOSINOPHILS % (MANUAL) 4 % (0-4); LYMPHOCYTES % (MANUAL) 7 % (20-46); MONOCYTES % (MANUAL) 3 % (5-12)
[2019-07-18 08:07] LABS: T4 (THYROXINE) 8.2 ug/dL (4.5-12.0)
[2019-07-18] MEDS: ATORVASTATIN 20 MG TAB PO SCH (09:00)
[2019-07-18] MEDS: CHOLECALCIFEROL 1,000 IU TAB PO SCH (09:00)
[2019-07-18] MEDS: ECOTRIN 81 MG TABEC PO SCH (09:00)
[2019-07-18] MEDS: SENNA 8.6 MG TAB PO SCH (09:00)
[2019-07-18] MEDS: FERROUS SULFATE 325 MG TABEC PO SCH ×2 (09:00→20:44)
[2019-07-18] MEDS: ARIPiprazole 10 MG TAB PO SCH (09:00)
[2019-07-18] MEDS: MAGNESIUM OXIDE 400 MG TAB PO SCH (09:00)
[2019-07-18] MEDS: CALCIUM CARB/VIT-D 500 MG/200 IU 1 TAB PO SCH (09:00)
[2019-07-18] MEDS: MEMANTINE 10 MG TAB PO SCH ×2 (09:00→20:45)
[2019-07-18] MEDS: ASCORBIC ACID 500 MG TAB PO SCH (09:00)
[2019-07-18] MEDS: MULTIVITAMIN/MINERALS 1 TAB PO SCH (09:00)
[2019-07-18] MEDS: GABAPENTIN 100 MG CAP PO SCH ×3 (09:00→17:00)
--- NOTE | 2019-07-18 09:15 | NUR ---
PT IS LETHARGIC, PT IS UNABLE TO SWALLOW MEDICATIONS AT THIS TIME. WILL CONTINUE TO MONITOR. DAUGHTER AT BEDSIDE.
--- NOTE | 2019-07-18 09:51 | NUR ---
Social Work Note: Basic Screen: Yes Name: ANITA MEJÍA Home Relationship: SON Pre-Admission Living Arrangements: SNF Other: [facility] Healthcare Decision Maker: Next of Kin Other: ANITA MEJÍA Advance Directive No Discipline: Case Mgt/Social Svcs Tentative Discharge Plan/Destination: SNF/ECF Will require assistance post discharge: No Referred to Container Packer Operator: No Tentative Discharge Plan Summary: Patient is an 88-year-old female admitted for ALOC. Patient has PMHX of Alzheimer's, dementia, DM, and psychosis. Patient was admitted from [facility]. SW contacted Dai from [facility] [phone]. Per Dai, patient is a care home patient and is currently on a bed hold. Dai reported that patient has no advanced directive on file, and patient's healthcare decision maker is son, Anita Mejía [phone]. Patient's tentative discharge plan is to return home. No further needs identified. Signature: RENETTA Figueroa Date: Jul 18, 2019 Time: 09:50
--- NOTE | 2019-07-18 11:01 | NUR ---
PT IS LYING IN BED ASLEEP, ABLE TO AROUSE, RESPONDS WITH GARBLED SPEECH AND FALLS EASILY BACK TO SLEEP. RESPIRATIONS EVEN AND UNLABORED. NO S/S OF DISTRESS NOTED. CALL LIGHT WITHIN REACH. BED ALARM ON. SAFETY PRECAUTIONS IN PLACE.
[2019-07-18] MEDS: MAG SULF 2000 MG/WATER PREMIX 100 ML IV SCH ×2 (12:14→14:33)
--- NOTE | 2019-07-18 12:34 | NUR ---
PT IS UNABLE TO EAT OR TAKE MEDICATIONS AT THIS TIME. PT IS LETHARGIC. DR. SHERI HENSLEY.
--- NOTE | 2019-07-18 14:33 | NUR ---
SECOND BAG OF MAGNESIUM STARTED ORDERED. PT IS STILL LETHARGIC, UNABLE TO STAY AWAKE WHEN AROUSED. FAMILY AT BEDSIDE. WILL CONTINUE TO MONITOR.
[2019-07-18] MEDS ORDERED: SODIUM ZIRCONIUM CYCLOSILICATE 10 GM POWD.PACK PO SCH (15:06)
[2019-07-18] MEDS ORDERED: MINERAL OIL 135 ML ENEM RC SCH ×2 (15:48→20:00)
[2019-07-18 16:00] VITALS: BP 115/62
--- NOTE | 2019-07-18 16:11 | NUR ---
PT UNABLE TO TAKE LOKELMA ORDERED. PT IS TOO LETHARGIC, UNABLE TO SWALLOW. NOTED EDEMA TO BILATERAL EXTREMITIES. WILL NOTIFY DR. WADE.
--- NOTE | 2019-07-18 16:30 | NUR ---
IV TO RIGHT AC INFILTRATED. WILL REINSERT ANOTHER IV SITE.
--- NOTE | 2019-07-18 16:45 | NUR ---
ATTEMPTED TO REINSERT IV, UNABLE GET ACCESS. WILL NOTIFY CHARGE NURSE.
--- NOTE | 2019-07-18 17:00 | NUR ---
RECEIVED REPORT FOR MRSA NARES RESULT. WILL NOTIFY
[2019-07-18] MEDS ORDERED: CHLORHEXADINE GLUC 2% CLOTH TP SCH ×2 (18:30→21:00)
[2019-07-18] MEDS ORDERED: MUPIROCIN CA NASAL 2% 1GM TUBE NS SCH ×2 (18:30→21:00)
--- NOTE | 2019-07-18 18:45 | NUR ---
UNABLE TO INSERT IV ACCESS. PT IS STILL LETHARGIC, UNABLE TO WAKE UP TO EAT DINNER. RESPIRATION EVEN AND UNLABORED. VS STABLE. FAMILY AT BEDSIDE. WILL ENDORSE TO NIGHT NURSE FOR CONTINUITY OF CARE.
--- NOTE | 2019-07-18 19:30 | NUR ---
RECEIVED BEDSIDE REPORT FROM DAY RN. PT IS AAOXO. OPEN EYES WHEN SHAKEN BUT VERY LETHARGIC GOES BACK TO SLEEP. PER FAMILY PT WAKES UP AT TIMES AND SPEAK. PT SKIN IS INTACT. JUST HAS A GEN RASH. PT IS INCONTINENT. RESPIRATIONS ARE EQUAL AND UNLABORED ON ROOM AIR. IV IS INFILTRATES PER RN. ON LAC DAY RN WILL REMOVED AND I WILL ATTEMPT TO START NEW IV. PT IS ON PUREE DIET. BUT, PER DAY RN PT DID NOT EAT TODAY ONLY SLEPT. 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 POC DISCUSSED WITH PT. WILL CONTINUE TO MONITOR.
--- NOTE | 2019-07-18 20:15 | NUR ---
PATIENT WITH SMALL SOFT BM. KUB SHOWED IMPACTION PER DOCTOR GIVE ENEMA. FLEET ENEMA GIVEN. PT WAS CLEANED AND TURNED FOR COMFORT. PT TOLERATED WELL. PT REMAINS AAOX0 OPENS EYES AND MUMBLES A FEW WORDS THEN GOES BACK TO SLEEP THEREFORE HELD ALL PO MEDICATIONS D/T HIGH RISK OF ASPIRATION. DAUGHTER IS AT BEDSIDE. CALL LIGHT IS WITHIN REACH. WILL CONTINUE TO MONITOR.
[2019-07-18] MEDS: DONEPEZIL 10 MG TAB PO SCH (20:44)
--- NOTE | 2019-07-18 22:27 | NUR ---
PATIENT IS SLEEPING COMFORTABLY IN BED. CHEST RISE AND FALL. ALL SAFETY MEASURES ARE IN PLACE. DAUGHTER IS AT BEDSIDE. WILL CONTINUE TO MONITOR.
[2019-07-18 23:12] VITALS: BP 118/48
--- NOTE | 2019-07-18 23:13 | NUR ---
VITAL SIGNS ARE WITHIN NORMAL LIMITS. DAUGHTER IS AT BEDSIDE. ALL SAFETY MEASURES ARE IN PLACE. CALL LIGHT IS WITHIN REACH.
--- NOTE | 2019-07-19 01:30 | NUR ---
INSERTED NEW IV ON L FA 24G ON SECOND ATTEMPT. WRAPPED IV. IVF NOW INFUSING PER ORDERS. PT TOLERATED WELL. ALL SAFETY MEASURES ARE IN PLACE. DAUGHTER AT BEDSIDE. WILL CONTINUE TO MONITOR
--- NOTE | 2019-07-19 04:39 | NUR ---
PATIENT IS SLEEPING COMFORTABLY IN BED WITH EYES CLOSED. CHEST RISE AND FALL. SAFETY MEASURES ARE IN PLACE. DAUGHTER IS AT BEDSIDE.
[2019-07-19] MEDS: BLOOD GLUCOSE MONITORING 1 DEV DEV FS SCH ×4 (05:45→21:20)
--- NOTE | 2019-07-19 06:10 | NUR ---
BLOOD SUGAR 103. NO COVERAGE NEEDED. SAFETY MEASURES ARE IN PLACE. CALL LIGHT IS WITHIN REACH. WILL CONTINUE TO MONITOR
--- NOTE | 2019-07-19 07:15 | NUR ---
RECEIVED PATIENT FROM NIGHT RN. PATIENT IS IN BED, LETHARGIC BUT MORE AWAKE THEN AT ADMISSION. DAUGHTER AND DR TRIVEDI AT BEDSIDE. PATIENT HAS AN IV TO LEFT FA. PATIENT IS FALL RISK: YELLOW SOCKS APPLIED, SIGN AT DOOR, BED ALARM ON, WRISTBAND APPLIED. PATIENT HAD X2 BM DURING FIXTURE DESIGNER. WILL REVIEW AND CONTINUE WITH PLAN OF CARE.
[2019-07-19 07:19] LABS: BASOPHILS % (AUTO) 0.1 % (0.0-2.0); EOSINOPHILS # (AUTO) 0.7 K/uL (0-0.4); EOSINOPHILS % (AUTO) 9.6 % (0.0-4.0); HEMATOCRIT 25.8 % (36-48); HEMOGLOBIN 8.4 g/dL (12.0-16.0); LYMPHOCYTES # (AUTO) 0.7 K/uL (2.5-16.5); LYMPHOCYTES % (AUTO) 10.1 % (20.5-51.1); MEAN CORPUSCULAR HEMOGLOBIN 30 pg (27-31); MEAN CORPUSCULAR HGB CONC 33 g/dL (33-37); MEAN CORPUSCULAR VOLUME 92.2 fL (80-94); MONOCYTES # (AUTO) 0.4 K/uL (0.8-1.0); NEUTROPHILS # (AUTO) 5.1 K/uL (1.8-7.7); NEUTROPHILS % (AUTO) 74.2 % (42.2-75.2); PLATELET COUNT (AUTO) 150 K/uL (140-450); RED CELL DISTRIBUTION WIDTH 15.3 % (11.6-13.7); WHITE BLOOD COUNT (AUTO) 6.8 K/uL (4.8-10.8)
[2019-07-19 07:26] LABS: MAGNESIUM 2.4 mg/dL (1.8-2.4); PHOSPHORUS 2.3 mg/dL (2.5-4.9)
--- NOTE | 2019-07-19 07:30 | NUR ---
GAVE BEDSIDE REPORT TO DAY RN. PT ENDORSED IN STABLE CONDITION.
[2019-07-19 07:37] LABS: ANION GAP 12.5 (8-16); CARBON DIOXIDE 24.5 mmol/L (21-32); CHLORIDE 115 mmol/L (98-107); CREATININE 1.4 mg/dL (0.6-1.3); GLUCOSE 104 mg/dL (74-106); SODIUM SERUM 147 mmol/L (136-145); UREA NITROGEN, BLOOD 42 mg/dL (7-18)
[2019-07-19] MEDS ORDERED: TRIAMCINOLONE 0.1% CRM 15 GM TUBE TP PRN ×2 (07:45→07:55)
[2019-07-19 08:00] VITALS: BP 80/52
[2019-07-19] MEDS: MEMANTINE 10 MG TAB PO SCH ×2 (08:40→21:09)
--- NOTE | 2019-07-19 08:40 | NUR ---
UNABLE TO ADMINISTER MORNING MEDICATION. PATIENT IS REFUSING TO SWALLOW. ATTEMPTED TO CRUSH RX AND GIVE WITH APPLESAUCE BUT PATIENT IS REFUSING THAT WELL. DAUGHTER AT BEDSIDE ATTEMPTING TO HELP. WILL INFORM
[2019-07-19] MEDS: MAGNESIUM OXIDE 400 MG TAB PO SCH (08:43)
[2019-07-19] MEDS: ARIPiprazole 10 MG TAB PO SCH (08:44)
[2019-07-19] MEDS: hydrOXYzine HCL 25 MG TAB PO SCH ×3 (08:48→17:00)
[2019-07-19] MEDS: ECOTRIN 81 MG TABEC PO SCH (08:48)
[2019-07-19] MEDS: ATORVASTATIN 20 MG TAB PO SCH (08:49)
[2019-07-19] MEDS: GABAPENTIN 100 MG CAP PO SCH ×3 (08:49→17:00)
[2019-07-19] MEDS: MULTIVITAMIN/MINERALS 1 TAB PO SCH (08:49)
[2019-07-19] MEDS: CHOLECALCIFEROL 1,000 IU TAB PO SCH (08:49)
[2019-07-19] MEDS: CALCIUM CARB/VIT-D 500 MG/200 IU 1 TAB PO SCH (08:49)
[2019-07-19] MEDS: SENNA 8.6 MG TAB PO SCH (08:49)
[2019-07-19] MEDS: FERROUS SULFATE 325 MG TABEC PO SCH ×2 (08:49→21:09)
[2019-07-19] MEDS: ASCORBIC ACID 500 MG TAB PO SCH (08:49)
[2019-07-19] MEDS: KETOCONAZOLE 2% 15 GM TUBE TP SCH (08:50)
[2019-07-19] MEDS: MUPIROCIN CA NASAL 2% 1GM TUBE NS SCH (08:50)
[2019-07-19] MEDS: CHLORHEXADINE GLUC 2% CLOTH TP SCH (08:50)
[2019-07-19] MEDS ORDERED: hydrOXYzine HCL 25 MG TAB PO SCH (09:00)
--- NOTE | 2019-07-19 10:28 | NUR ---
*S.T. BEDSIDE SWALLOW EVAL COMPLETED* See report for details. Pt presents w/ moderate oropharyngeal dysphagia c/b bolus holding in oral cavity and delayed pharyngeal swallow initiation. However, no coughing and clear voice after swallows. Pt requires 1:1 feeder at this time. Recommend; 1) Continue pureed diet, advance to thin liquids. Straws okay. 2) Crush P.O. meds and mix w/ pudding (not applesauce, per family request). 3) 1:1 feeder w/ aspiration precautions. 4) Slowly advance diet as tolerated as pt's alertness and general strength improves. No further tx indicated at this time. DC to nsg care. D/w family members at bedside. Endorsed to [facility]. Time [id number]
[2019-07-19] MEDS: DEXT 5% / NACL 0.45% 1,000 ML IV SCH (10:55)
--- NOTE | 2019-07-19 11:30 | NUR ---
BLOOD SUGAR OF 150, NO INSULIN COVERAGE NEEDED. PATIENT HAS FAMILY AT BEDSIDE. PATIENT IS RESTING IN BED, SLIGHTLY AGITATED BUT LESS THAN THIS MORNING. PER FAMILY, PATIENT IS MORE AWAKE AND ALERT THAN THE LAST FEW DAYS.
--- NOTE | 2019-07-19 11:51 | NUR ---
PATIENTS FAMILY MEMBER INFORMED ME THAT THEY THINK THE PATIENT IS RUNNING A FEVER AND FEELS WARM. TOOK PATIENTS TEMP ORALLY, 98.5
--- NOTE | 2019-07-19 12:50 | NUR ---
GAVE FAMILY MEMBERS KENALOG TO APPLY TO PATIENTS ARMS BILATERALLY FOR ITCHING. X4 FAMILY MEMBERS AT BEDSIDE, NO FURTHER COMPLAINTS AT THIS TIME
[2019-07-19 13:03] VITALS: BP 110/62
[2019-07-19] MEDS ORDERED: SODIUM PHOS / POTASSIUM PHOS 1 PKT PDR PO ONE (13:15)
[2019-07-19] MEDS ORDERED: SODIUM PHOSPHATE 15 MMOLE in NACL 0.9% 250 ML IV SCH (15:00)
--- NOTE | 2019-07-19 16:19 | NUR ---
BLOOD SUGAR OF 125, NO ACTION NEEDED. IV NA PHOSPHATE INFUSING AT THIS TIME FOR K 5.0
[2019-07-19] MEDS: guaiFENesin DM 200/20 MG-10 ML 10 ML UDC PO PRN (18:36)
--- NOTE | 2019-07-19 18:36 | NUR ---
ADMINISTERED ROBITUSSIN FOR COUGH. DAUGHTER AT BEDSIDE ASSISTED IN ADMINISTRATION. ALL NEEDS HAVE BEEN MET AT THIS TIME, WILL ENDORSE TO METAL DOOR ASSEMBLER FOR CONTINUITY OF CARE.
--- NOTE | 2019-07-19 19:27 | NUR ---
RECEIVED BEDSIDE REPORT FROM DAY SHIFT NURSE. PATIENT IS SLEEPING.RESPIRATION EVEN UNLABORED ON ROOM AIR. FAMILY AT BEDSIDE. SKIN IS WARM AND DRY. IV PATENT AND INTACT. PLAN OF CARE DISCUSSED.ALL SAFETY MEASURES IN PLACE. BED IS AT LOW POSITION. CALL LIGHT WITHIN REACH. WILL CONTINUE TO MONITOR.
[2019-07-19] MEDS ORDERED: COMMUNICATION ORDER MC SCH (21:00)
[2019-07-19] MEDS: DONEPEZIL 10 MG TAB PO SCH (21:09)
[2019-07-19] MEDS: MUPIROCIN 2% OINT 22 GM TUBE TP SCH (21:20)
--- NOTE | 2019-07-19 21:20 | NUR ---
DROPPED FERROUS SULFATE ON THE FLOOR. TOOK 1 DOSE FROM OMNICELL. DUE MEDS GIVEN ORDERED, TOLERATED WELL. CALL LIGHT WITHIN REACH. DAUGHTER JAQUELINE AT BEDSIDE. WILL CONTINUE TO MONITOR.
--- NOTE | 2019-07-19 22:03 | NUR ---
PATIENT RESTING COMFORTABLY IN BED WITH FAMILY AT BEDSIDE. NO S/SX ACUTE DISTRESS. CALL LIGHT WITHIN REACH. WILL CONTINUE TO MONITOR.
[2019-07-20] VITALS: BP 123/62
[2019-07-20] MEDS: DEXT 5% / NACL 0.45% 1,000 ML IV SCH ×2 (00:09→11:55)
--- NOTE | 2019-07-20 00:23 | NUR ---
ASLEEP IN BED WITH FAMILY AT BEDSIDE. VITALS STABLE. NO S/SX ACUTE DISTRESS NOTED. CALL LIGHT WITHIN REACH. WILL CONTINUE TO MONITOR.
--- NOTE | 2019-07-20 02:33 | NUR ---
PATIENT ASLEEP IN BED. NO S/SX ACUTE DISTRESS. RESPIRATIONS EVEN, UNLABORED. ALL NEEDS ATTENDED TO. CALL LIGHT WITHIN REACH. WILL CONTINUE TO MONITOR.
--- NOTE | 2019-07-20 04:16 | NUR ---
ASLEEP IN BED. RESPIRATIONS EVEN, UNLABORED. NO S/SX ACUTE DISTRESS. CALL LIGHT WITHIN REACH. WILL CONTINUE TO MONITOR.
[2019-07-20] MEDS: BLOOD GLUCOSE MONITORING 1 DEV DEV FS SCH ×4 (06:48→21:06)
--- NOTE | 2019-07-20 07:10 | NUR ---
RECEIVED REPORT FROM NIGHT RN MARIO. PATIENT IS SLEEPING IN BED, NO SIGNS OF RESPIRATORY DISTRESS. PATIENT IS ON ROOM AIR, DNR, NKA. FALL RISK PATIENT: YELLOW SOCKS APPLIED, YELLOW WRISTBAND APPLIED, SIGN AT DOOR, BED ALARM ON. 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 WILL REVIEW AND CONTINUE WITH PLAN OF CARE FOR THE DAY.
--- NOTE | 2019-07-20 07:12 | NUR ---
ENDORSE GIVEN TO DAYSHIFT NURSE. PATIENT IS STABLE.
[2019-07-20 08:00] VITALS: BP 137/48
[2019-07-20] MEDS: FERROUS SULFATE 325 MG TABEC PO SCH ×2 (09:00→20:56)
[2019-07-20] MEDS: MULTIVITAMIN/MINERALS 1 TAB PO SCH (09:00)
[2019-07-20] MEDS: ASCORBIC ACID 500 MG TAB PO SCH (09:00)
[2019-07-20] MEDS: hydrOXYzine HCL 25 MG TAB PO SCH ×3 (09:00→16:11)
[2019-07-20] MEDS: SENNA 8.6 MG TAB PO SCH (09:00)
[2019-07-20] MEDS: GABAPENTIN 100 MG CAP PO SCH ×3 (09:00→16:11)
[2019-07-20] MEDS: CHOLECALCIFEROL 1,000 IU TAB PO SCH (09:00)
[2019-07-20] MEDS: CHLORHEXADINE GLUC 2% CLOTH TP SCH (09:00)
[2019-07-20] MEDS: CALCIUM CARB/VIT-D 500 MG/200 IU 1 TAB PO SCH (09:00)
[2019-07-20 09:08] LABS: BASOPHILS % (AUTO) 0.2 % (0.0-2.0); EOSINOPHILS # (AUTO) 0.7 K/uL (0-0.4); EOSINOPHILS % (AUTO) 8.9 % (0.0-4.0); HEMATOCRIT 25.3 % (36-48); HEMOGLOBIN 8.2 g/dL (12.0-16.0); LYMPHOCYTES # (AUTO) 0.8 K/uL (2.5-16.5); LYMPHOCYTES % (AUTO) 11.2 % (20.5-51.1); MEAN CORPUSCULAR HEMOGLOBIN 30 pg (27-31); MEAN CORPUSCULAR HGB CONC 32 g/dL (33-37); MEAN CORPUSCULAR VOLUME 92.4 fL (80-94); MONOCYTES # (AUTO) 0.6 K/uL (0.8-1.0); MONOCYTES % (AUTO) 7.7 % (1.7-9.3); NEUTROPHILS # (AUTO) 5.3 K/uL (1.8-7.7); PLATELET COUNT (AUTO) 158 K/uL (140-450); RED BLOOD CELL COUNT(AUTO) 2.74 MIL/uL (4.20-5.40); WHITE BLOOD COUNT (AUTO) 7.4 K/uL (4.8-10.8)
[2019-07-20] MEDS: MUPIROCIN CA NASAL 2% 1GM TUBE NS SCH (10:27)
--- NOTE | 2019-07-20 10:30 | NUR ---
WITH THE ASSISTANCE OF DAUGHTER AT BEDSIDE, GAVE PATIENT PERTINENT RX MEDICATION. WITHHELD LARGER ONES D/T PATIENT BEING UNABLE TO SWALLOW. GAVE DAUGHTER CREAM FOR HANDS AND FEET.
[2019-07-20] MEDS: ARIPiprazole 10 MG TAB PO SCH (10:33)
[2019-07-20] MEDS: ECOTRIN 81 MG TABEC PO SCH (10:34)
[2019-07-20] MEDS: MEMANTINE 10 MG TAB PO SCH ×2 (10:35→20:56)
[2019-07-20] MEDS: ATORVASTATIN 20 MG TAB PO SCH (10:36)
[2019-07-20] MEDS: MUPIROCIN 2% OINT 22 GM TUBE TP SCH ×2 (10:40→21:08)
[2019-07-20] MEDS: MAGNESIUM OXIDE 400 MG TAB PO SCH (10:40)
[2019-07-20] MEDS: KETOCONAZOLE 2% 15 GM TUBE TP SCH (10:41)
[2019-07-20 10:44] LABS: ANION GAP 11.5 (8-16); CARBON DIOXIDE 24.4 mmol/L (21-32); CHLORIDE 114 mmol/L (98-107); CREATININE 1.5 mg/dL (0.6-1.3); GLUCOSE 110 mg/dL (74-106); POTASSIUM 4.9 mmol/L (3.5-5.1); SODIUM SERUM 145 mmol/L (136-145); UREA NITROGEN, BLOOD 34 mg/dL (7-18)
--- NOTE | 2019-07-20 10:59 | NUR ---
DISCHARGE PLANNING: RECEIVED AN ORDER FOR HOME HEALTH. CONTACTED PATIENT'S SON ANITA MEJÍA AT [phone], NO ANSWER. LEFT MESSAGE. CONTACTED PATIENT'S DAUGHTER JAQUELINE FOWLER AT [phone], NO ANSWER. LEFT MESSAGE. WILL FOLLOW UP Addendum: 07/20/19 at 1410 by Davina Laughlin 1050: MEET WITH THE PATIENT'S DAUGHTER JAQUELINE DEL CID AT THE BEDSIDE, SHE MENTIONED THE FAMILY DECIDED TO INQUIRE ABOUT PALLIATIVE CARE. I PROVIDED HER WITH 6 BROCHURES TO CHOOSE. SHE STATED HER BROTHER ANITA MEJÍA WILL BE HERE IN 5 MINS. I TOLD TO HAVE THE NURSE CALL WHENEVER HER BROTHER IS HERE. 1315: PER CHARGE NURSE FAMILY IS HERE. MET WITH PATIENT'S SON ANITA, GRAND DAUGHTER GALILEO AND PATIENT'S DAUGHTER JAQUELINE AT THE BEDSIDE TOGETHER WITH DR. BUNCH. ALL CONCERNS AND QUESTIONS ANSWERED. PER PATIENT'S GRAND DAUGHTER GALILEO FAMILY LIKES TO SPEAK TO [facility] FOR MORE QUESTIONS. CONTACTED MASON MORROW LIAISON FOR [facility], SHE SATED SHE WILL BE HERE IN 30 MINS TO MEET WITH THE FAMILY. FAMILY MADE AWARE. CHARGE NURSE ZEN MADE AWARE WELL. Addendum: 07/20/19 at 1621 by Laney Hennessy CM DC PLANNING HOWIE FROM [facility] CAME IN AND TALK TO THE PATIENT AND FAMILY MEMBER ANITA MEJÍA AND DAUGHTER JAQUELINE , PER HOWIE THEY ACCEPT THE PALLIATIVE CARE BUT REQUESTED TO BE DISCHARGE TOMORROW. DR BUNCH DISCUSSED THE DC ORDERED WELL. I DISCUSSED THE MEDICARE APPEAL FORM CAN BE INITIATED , PER SON ANITA WANTED TO APPEAL PROVIDED THE FORM AND THE NUMBER AND ANITA WHO HAS THE DESIGNATED PERSON TO SIGN , CALLED AND SIGNED PAPER. I RECEIVED THE FAX FROM [employer] AND FAXED ALL THE REQUEST TO [phone] CONTROL ID # [id number] . TIMOTHY TO FOLLOW Addendum: 07/22/19 at 1208 by Davina Laughlin 0030: CONTACTED MASON OF [facility] AT [phone], NO ANSWER. LEFT MESSAGE. 1005: CONTACTED MASON AGAIN OF [facility], STILL NO ANSWER. LEFT MESSAGE. 1030: CONTACTED MASON AGAIN, WENT TO STRAIGHT TO [employer]. LEFT MESSAGE. RECEIVED A CALL FROM MASON AND STATED SHE WILL CONTACT THE FAMILY. CONTACTED PATIENT'S SON ANITA MEJÍA AT [phone], NO ANSWER. LEFT MESSAGE. Addendum: 07/22/19 at 1311 by Davina Laughlin CM CONTACTED PATIENT'S SON ANITA MEJÍA REGARDING DISCHARGE. HE ASKED IF WE CAN ARRANGE TRANSPORT, EXPLAINED TO HIM THAT I CAN SET UP TRANSPORT HOWEVER, THEY HAVE TO PAY. HE STATED HE WILL BE AVAILABLE TO IMPORT SPECIALIST THE PATIENT AT 6PM. DR. BUNCH, CHARGE NURSE AND PRIMARY RN MADE AWARE.
[2019-07-20 11:02] LABS: MAGNESIUM 1.7 mg/dL (1.8-2.4); PHOSPHORUS 2.9 mg/dL (2.5-4.9)
--- NOTE | 2019-07-20 11:46 | NUR ---
07/20/19 RD FOLLOW UP COMPLETED PLEASE REFER TO NUTRITION ASSESSMENT UNDER CARE ACTIVITY FOR ESTIMATED NUTRITIONAL NEEDS. 1. RECOMMEND RE-EVALUATION OF SWALLOWING TO ADVANCE DIET IF TOLERATED 2. RECOMMEND ENSURE BID 3. CONTINUE CCHO 60GM CARDIAC NA2GM PUREE DIET IF PT IS UNABLE TO TOLERATE ADVANCED FOOD TEXTURES 4. PROVIDE FEEDING ASSISTANCE WITH MEALS 5. F/U 2-3 DAYS; HIGH RISK YOLANDA GAONA RD
[2019-07-20] MEDS ORDERED: MAG SULF 2000 MG/WATER PREMIX 50 ML IV SCH (14:00)
--- NOTE | 2019-07-20 14:23 | NUR ---
PER WATER TAXI FERRY OPERATOR [facility] WILL BE COMING TO VISIT WITH PATIENTS FAMILY AND PATIENT.
--- NOTE | 2019-07-20 14:30 | NUR ---
PATIENTS IV LINE HAS BEEN REMOVED, CANNULA INTACT. PER DR BUNCH, PATIENT DOESNT REQUIRE IV ACCESS AT THIS TIME SHE MAY BE DISCHARGED TODAY.
--- NOTE | 2019-07-20 14:55 | NUR ---
NURSE FROM [facility] AT BEDSIDE SPEAKING TO PATIENT AND FAMILY MEMBERS.
[2019-07-20] MEDS: guaiFENesin DM 200/20 MG-10 ML 10 ML UDC PO PRN (15:35)
--- NOTE | 2019-07-20 15:35 | NUR ---
ADMINISTERED ROBITUSSIN PO FOR COUGH. DAUGHTER AT BEDSIDE TO ASSIST
[2019-07-20 16:00] VITALS: BP 137/44
--- NOTE | 2019-07-20 16:30 | NUR ---
BLOOD SUGAR OF 114, NO INSULIN COVERAGE NEEDED.
--- NOTE | 2019-07-20 19:10 | NUR ---
RESTING IN BED, AWAKE, A/OX1. RESPIRATION EVEN AND UNLABORED. NO IV LINE, MD AWARE, PATIENT FOR PALLIATIVE CARE TO GO HOME TOMORROW. SAFETY MEASURES ENFORCED, BED ON ALARM. DAUGHTER AT THE BEDSIDE ASSISTING WITH PATIENT ADLs. PLAN OF CARE DISCUSSED WITH DAUGHTER. VERBALIZED UNDERSTANDING. NO APPEARANCE OF PAIN NOTED, FLACC - 0.
--- NOTE | 2019-07-20 20:00 | NUR ---
Patient's Plan of Care was discussed and reviewed with DRAFTER TOPOGRAPHICAL: JAYLA, WILL CONTINUE WITH CURRENT POC.
--- NOTE | 2019-07-20 20:30 | NUR ---
HAD A LARGE LOOSE BM. CLEANSED AND REPOSITIONED IN BED FOR COMFORT.
[2019-07-20] MEDS: DONEPEZIL 10 MG TAB PO SCH (20:56)
--- NOTE | 2019-07-20 20:56 | NUR ---
DUE PO MEDICATIONS GIVEN WITH APPLE SAUCE, NO S/S OF ASPIRATION NOTED.
--- NOTE | 2019-07-20 21:06 | NUR ---
BS CHECLED - 105, NO COVERAGE. SNACK OF APPLE SAUCE GIVEN, TOLERATED WELL.
[2019-07-21] VITALS: BP 157/72
--- NOTE | 2019-07-21 | NUR ---
SLEEPING COMFORTABLY IN BED.
[2019-07-21] MEDS: DEXT 5% / NACL 0.45% 1,000 ML IV SCH ×2 (00:25→12:51)
--- NOTE | 2019-07-21 04:00 | NUR ---
CLEANSED AND REPOSITIONED IN BED WITH PILLOWS FOR COMFORT. DR. LAUREN CHECKED PATIENT SACRAL AREA, WILL ORDER MEDS FOR BLANCHABLE REDNESS.
[2019-07-21] MEDS ORDERED: Z-GUARD PASTE TP ONE (04:45)
--- NOTE | 2019-07-21 05:58 | NUR ---
Z-GUARD APPLIED ORDERED.
[2019-07-21 06:38] LABS: BASOPHILS % (AUTO) 0.2 % (0.0-2.0); EOSINOPHILS # (AUTO) 0.7 K/uL (0-0.4); EOSINOPHILS % (AUTO) 10.5 % (0.0-4.0); HEMATOCRIT 26.5 % (36-48); HEMOGLOBIN 8.6 g/dL (12.0-16.0); LYMPHOCYTES # (AUTO) 0.8 K/uL (2.5-16.5); LYMPHOCYTES % (AUTO) 11.8 % (20.5-51.1); MEAN CORPUSCULAR HEMOGLOBIN 30 pg (27-31); MEAN CORPUSCULAR HGB CONC 33 g/dL (33-37); MEAN CORPUSCULAR VOLUME 92.3 fL (80-94); MONOCYTES # (AUTO) 0.5 K/uL (0.8-1.0); MONOCYTES % (AUTO) 7.1 % (1.7-9.3); NEUTROPHILS % (AUTO) 70.4 % (42.2-75.2); PLATELET COUNT (AUTO) 158 K/uL (140-450); RED BLOOD CELL COUNT(AUTO) 2.87 MIL/uL (4.20-5.40); WHITE BLOOD COUNT (AUTO) 7.1 K/uL (4.8-10.8)
[2019-07-21 06:48] LABS: ANION GAP 15.2 (8-16); CARBON DIOXIDE 22.3 mmol/L (21-32); CHLORIDE 114 mmol/L (98-107); CREATININE 1.5 mg/dL (0.6-1.3); GLUCOSE 115 mg/dL (74-106); POTASSIUM 4.5 mmol/L (3.5-5.1); SODIUM SERUM 147 mmol/L (136-145); UREA NITROGEN, BLOOD 33 mg/dL (7-18)
[2019-07-21 06:54] LABS: MAGNESIUM 1.8 mg/dL (1.8-2.4)
--- NOTE | 2019-07-21 07:20 | NUR ---
ENDORSED TO RONALD JONES FOR CONTINUITY OF CARE.
--- NOTE | 2019-07-21 07:21 | NUR ---
RECEIVED REPORT FROM SPORTS MARKETING SPECIALIST NURSE. PATIENT LYING DOWN IN BED SLEEPING, AROUSABLE BY VOICE. DAUGHTER AT BEDSIDE. AAOX1, CALM, COOPERATIVE, SKIN COLOR APPROPRIATE TO ETHNICITY, WARM TO TOUCH. SKIN INTACT. NO IV SITE, MD AWARE. ON PALLIATIVE CARE. HAD 3 BM DURING NIGHTSHIFT PER NIGHT RN REPORTS. REVIEWED PLAN OF CARE WITH PATIENT/DAUGHTER. DAUGHTER VERBALIZED UNDERSTANDING. SAFETY MEASURES IN PLACE, CALL LIGHT WITHIN REACH. WILL CONTINUE TO MONITOR.
[2019-07-21] MEDS: BLOOD GLUCOSE MONITORING 1 DEV DEV FS SCH ×4 (07:41→21:02)
[2019-07-21 08:00] VITALS: BP 140/49
[2019-07-21] MEDS: GABAPENTIN 100 MG CAP PO SCH ×3 (09:31→16:56)
[2019-07-21] MEDS: SENNA 8.6 MG TAB PO SCH (09:31)
[2019-07-21] MEDS: MULTIVITAMIN/MINERALS 1 TAB PO SCH (09:31)
[2019-07-21] MEDS: MAGNESIUM OXIDE 400 MG TAB PO SCH (09:31)
[2019-07-21] MEDS: CALCIUM CARB/VIT-D 500 MG/200 IU 1 TAB PO SCH (09:31)
[2019-07-21] MEDS: CHOLECALCIFEROL 1,000 IU TAB PO SCH (09:32)
[2019-07-21] MEDS: ECOTRIN 81 MG TABEC PO SCH (09:32)
[2019-07-21] MEDS: FERROUS SULFATE 325 MG TABEC PO SCH ×2 (09:32→20:55)
[2019-07-21] MEDS: hydrOXYzine HCL 25 MG TAB PO SCH ×3 (09:32→16:56)
[2019-07-21] MEDS: ATORVASTATIN 20 MG TAB PO SCH (09:32)
[2019-07-21] MEDS: MEMANTINE 10 MG TAB PO SCH ×2 (09:32→20:55)
[2019-07-21] MEDS: ASCORBIC ACID 500 MG TAB PO SCH (09:32)
[2019-07-21] MEDS: ARIPiprazole 10 MG TAB PO SCH (09:32)
[2019-07-21] MEDS: MUPIROCIN CA NASAL 2% 1GM TUBE NS SCH (09:33)
[2019-07-21] MEDS: MUPIROCIN 2% OINT 22 GM TUBE TP SCH ×2 (09:33→20:56)
[2019-07-21] MEDS: CHLORHEXADINE GLUC 2% CLOTH TP SCH (09:33)
--- NOTE | 2019-07-21 09:41 | NUR ---
PATIENT LYING DOWN IN BED SLEEPING, AROUSABLE BY VOICE. NO DISTRESS NOTED. DENIES ANY PAIN. DAUGHTER AT BEDSIDE. SCHEDULED MEDICATIONS DUE GIVEN. WILL CONTINUE TO MONITOR.
--- NOTE | 2019-07-21 10:15 | NUR ---
Medicare appeal called and spoke to Danisha and stated that the Daughter appeal is denied. [facility] Medicare agreed with the hospital discharge. Daughter was informed. The resident was also informed.
--- NOTE | 2019-07-21 11:59 | NUR ---
CONTACTED [facility] MULTIPLE TIMES, NO ANSWER. DR. BUNCH NOTIFIED. HE STATED HE WILL CONTACT THE FAMILY WELL. Addendum: 07/21/19 at 1300 by Carolina Clay RN TEL#: [phone] GIVEN BY MISBAH CARDENAS
[2019-07-21] MEDS: INSULIN LISPRO SLIDING SCALE 100 UNITS/ML VIAL SUBQ PRN (12:50)
--- NOTE | 2019-07-21 12:52 | NUR ---
PATIENT SITTING IN BED. DAUGHTER AT BEDSIDE. NO DISTRESS NOTED. SCHEDULED MEDICATIONS DUE GIVEN. WILL CONTINUE TO MONITOR.
[2019-07-21 16:00] VITALS: BP 136/68
--- NOTE | 2019-07-21 16:20 | NUR ---
PATIENT'S SON ANITA MEJÍA CAME AND HAVE ME AND [facility] SUP LISTEN TO LIVANTA'S VOICEMAIL MESSAGE FROM HIS CELL PHONE. PER THE VM, PT'S APPEAL WAS DENIED BUT THEY HAVE UNTIL THE TO REAPPEAL.
--- NOTE | 2019-07-21 16:57 | NUR ---
SCHEDULED MEDICATIONS NOT GIVEN AT THIS TIME DUE TO PATIENT BEING DROWSY AND ASPIRATION RISK. FAMILY AT BEDSIDE. WILL CONTINUE TO MONITOR.
--- NOTE | 2019-07-21 18:00 | NUR ---
PATIENT LYING DOWN IN BED SLEEPING, AROUSBLE BY VOICE. CONDITION UNCHANGED. WILL CONTINUE TO MONITOR.
--- NOTE | 2019-07-21 19:08 | NUR ---
GAVE REPORT TO VEGETABLE PICKER NURSE FOR CONTINUITY OF CARE. PATIENT IN STABLE CONDITION.
--- NOTE | 2019-07-21 19:33 | NUR ---
RECEIVED BEDSIDE REPORT FROM DAY SHIFT NURSE. PATIENT IS SLEEPING AROUSABLE BY TOUCH AND NAME. RESPIRATION EVEN UNLABORED ON ROOM AIR. SKIN IS WARM AND DRY. IV PATENT AND INTACT. PLAN OF CARE DISCUSSED. FAMILY AT BEDSIDE. ALL SAFETY MEASURES IN PLACE. BED IS AT LOW POSITION. CALL LIGHT WITHIN REACH. WILL CONTINUE TO MONITOR.
--- NOTE | 2019-07-21 20:05 | NUR ---
INITIAL ASSESSMENT DONE. VITALS WERE TAKEN. PATIENT HAS NO IV. WILL CONTINUE TO MONITOR.
[2019-07-21] MEDS: DONEPEZIL 10 MG TAB PO SCH (20:55)
--- NOTE | 2019-07-21 21:10 | NUR ---
ALL SCHEDULED MEDS WERE GIVEN PER ORDER. NO ASE NOTED. WILL CONTINUE TO MONITOR.
--- NOTE | 2019-07-21 23:25 | NUR ---
CHECKED PATIENT. PATIENT SLEEPING RESPIRATION EVEN UNLABORED ON ROOM AIR. DAUGHTER AT BEDSIDE. WILL CONTINUE TO MONITOR.
[2019-07-22] VITALS: BP 143/54
[2019-07-22] MEDS: DEXT 5% / NACL 0.45% 1,000 ML IV SCH ×2 (01:25→13:55)
--- NOTE | 2019-07-22 01:40 | NUR ---
VITALS WERE TAKEN. PATIENT IN STABLE CONDITION. NO DISTRESS NOTED. WILL CONTINUE TO MONITOR.
--- NOTE | 2019-07-22 03:21 | NUR ---
CHECKED PATIENT. PATIENT SLEEPING RESPIRATION EVEN UNLABORED ON ROOM AIR. NO DISTRESS NOTED. WILL CONTINUE TO MONITOR.
--- NOTE | 2019-07-22 05:06 | NUR ---
CHECKED PATIENT. PATIENT SLEEPING RESPIRATION EVEN UNLABORED ON ROOM AIR. NO DISTRESS NOTED. WILL CONTINUE TO MONITOR
[2019-07-22] MEDS: BLOOD GLUCOSE MONITORING 1 DEV DEV FS SCH ×3 (06:31→16:40)
--- NOTE | 2019-07-22 07:22 | NUR ---
MADE ROUNDS PATIENT IN STABLE CONDITION WILL ENDORSE TO DAY SHIFT NURSE
--- NOTE | 2019-07-22 07:30 | NUR ---
RECEIVED PATIENT FROM CHARGE NURSE, PATIENT IS IN STABLE CONDITION. WILL CONTINUE TO MONITOR
[2019-07-22 08:00] VITALS: BP 156/63
[2019-07-22] MEDS ORDERED: ARIPiprazole 10 MG TAB ONE (08:37)
[2019-07-22] MEDS: ATORVASTATIN 20 MG TAB PO SCH (08:48)
[2019-07-22] MEDS: MEMANTINE 10 MG TAB PO SCH (08:48)
[2019-07-22] MEDS: SENNA 8.6 MG TAB PO SCH (08:48)
[2019-07-22] MEDS: ECOTRIN 81 MG TABEC PO SCH (08:49)
[2019-07-22] MEDS: ARIPiprazole 10 MG TAB PO SCH (08:49)
[2019-07-22] MEDS: CHOLECALCIFEROL 1,000 IU TAB PO SCH (08:50)
[2019-07-22] MEDS: FERROUS SULFATE 325 MG TABEC PO SCH (08:50)
[2019-07-22] MEDS: CALCIUM CARB/VIT-D 500 MG/200 IU 1 TAB PO SCH (08:50)
[2019-07-22] MEDS: hydrOXYzine HCL 25 MG TAB PO SCH ×3 (08:50→16:40)
[2019-07-22] MEDS: MAGNESIUM OXIDE 400 MG TAB PO SCH (08:51)
[2019-07-22] MEDS: GABAPENTIN 100 MG CAP PO SCH ×3 (08:51→16:40)
[2019-07-22] MEDS: MUPIROCIN CA NASAL 2% 1GM TUBE NS SCH (08:52)
[2019-07-22] MEDS: ASCORBIC ACID 500 MG TAB PO SCH (08:53)
[2019-07-22] MEDS: MULTIVITAMIN/MINERALS 1 TAB PO SCH (08:53)
[2019-07-22] MEDS: MUPIROCIN 2% OINT 22 GM TUBE TP SCH (08:54)
[2019-07-22] MEDS: CHLORHEXADINE GLUC 2% CLOTH TP SCH (08:54)
--- NOTE | 2019-07-22 09:16 | NUR ---
ACKNOWLEDGED DISCHARGE ORDER FROM PROVIDER, PATIENT WILL BE PREPARED FOR DISCHARGE AT THIS TIME. VITAL SIGNS REMAIN WITHIN NORMAL LIMITS. SCHEDULED MEDICATIONS WERE ALSO GIVEN AT THIS TIME WITH OUT DISTRESS NOTED
--- NOTE | 2019-07-22 12:06 | NUR ---
DAUGHTER STATES, THEY ARE ARRANGING TRANSPORT FOR PATIENT TO BE DISCHARGE HOME. WILL CONTINUE TO MONITOR. PATIENT WAS CLEANED AND LINEN WAS CHANGED AT THIS TIME.
--- NOTE | 2019-07-22 13:45 | NUR ---
PATIENT CLEANED, SKIN INTACT, PATIENT THEN REPOSITIONED. STABLE AT THSI TIME, WILL CONTINUE TO MONITOR.
[2019-07-22 16:00] VITALS: BP 133/50
--- NOTE | 2019-07-22 16:05 | NUR ---
PATIENT AND DAUGHTER EDUCATED ON DISCHARGE INSTRUCTIONS. BELONGINGS GATHERED AND PREPARED FOR PERSONAL TRANSPORT. PER DAUGHTER, THEY WOULD LIKE TO WAIT TO HAVE BROTHER SIGN DISCHARGE PAPERS. PATIENT IS STABLE AT THIS TIME, VITALS ARE WITHIN NORMAL RANGE, PENDING PERSONAL TRANSPORT CONTRACTING MANAGER FROM FAMILY.
--- NOTE | 2019-07-22 18:05 | NUR ---
PATIENT READY FOR DISCHARGE AT THIS TIME. FAMILY AT THE BEDSIDE. PATIENT CHANGED INTO REGULAR CLOTHES. PATIENT STABLE AT THIS TIME, ASSISTED PATIENT INTO WHEELCHAIR, BELONGINGS GIVEN TO PATIENT. PATIENT'S SON, VALENTE SIGNED DISCHARGED PAPER WORK AND WAS ESCORTED VIA WHEELCHAIR TO THE CAR. Addendum: 07/22/19 at 1824 by Ludivina Ryder RN MEDICATIONS WERE CONTINUED BY DR JENNINGS AND SENT TO PHARMACY REQUESTED BY PATIENT'S SON VALENTE, TO [facility]
[2019-07-22] MEDS ORDERED: KETO2CRE3 TP (18:27)
[2019-07-22] MEDS ORDERED: ASCO500T45 PO (18:27)
[2019-07-22] MEDS ORDERED: ARIP5TAB8 PO (18:27)
[2019-07-22] MEDS ORDERED: ATOR20TA PO (18:27)
[2019-07-22] MEDS ORDERED: GABA100C PO (18:27)
[2019-07-22] MEDS ORDERED: ACET-2619 PO (18:27)
[2019-07-22] MEDS ORDERED: ASPI-1173 PO (18:27)
[2019-07-22] MEDS ORDERED: FERR325E14 PO (18:27)
[2019-07-22] MEDS ORDERED: BISA-188 RC (18:27)
[2019-07-22] MEDS ORDERED: AMLO5TAB PO (18:27)
[2019-07-22] MEDS ORDERED: MEMA5TAB PO (18:27)
[2019-07-22] MEDS ORDERED: ATA10 PO (18:27)
[2019-07-22] MEDS ORDERED: LISI-420 PO (18:27)
[2019-07-22] MEDS ORDERED: DICL3GEL5 TP (18:27)
[2019-07-22] MEDS ORDERED: [UNRECOGNIZED DRUG - CODE] TP (18:27)
[2019-07-22] MEDS ORDERED: GLIP10TA3 PO (18:27)
[2019-07-22] MEDS ORDERED: LORA10TA19 PO (18:27)
[2019-07-22] MEDS ORDERED: NITR0.4T2 SL (18:27)
[2019-07-22] MEDS ORDERED: CALC-567 PO (18:27)
[2019-07-22] MEDS ORDERED: DONE10TA10 PO (18:27)
== END 2019-07-22 18:05 | disposition home or self-care (01) | DRG 689 ==
LOC: MED 21:43 → MTU 07-17 01:50
PROVIDERS: ADMIT Family Medicine; ATTEND Family Medicine
DX: N39.0 Urinary tract infection, site not specified (principal); G93.41 Metabolic encephalopathy; E87.0 Hyperosmolality and hypernatremia; G30.9 Alzheimer's disease, unspecified; F02.80 Dementia in other diseases classified elsewhere, unspecified severity, without behavioral disturbance, psychotic disturbance, mood disturbance, and anxiety; E11.65 Type 2 diabetes mellitus with hyperglycemia; E87.5 Hyperkalemia; E83.39 Other disorders of phosphorus metabolism; L29.8 Other pruritus; G30.8 Other Alzheimer's disease; Z96.653 Presence of artificial knee joint, bilateral; K21.9 Gastro-esophageal reflux disease without esophagitis; N18.2 Chronic kidney disease, stage 2 (mild); I12.9 Hypertensive chronic kidney disease with stage 1 through stage 4 chronic kidney disease, or unspecified chronic kidney disease; E11.22 Type 2 diabetes mellitus with diabetic chronic kidney disease; D64.9 Anemia, unspecified; F29 Unspecified psychosis not due to a substance or known physiological condition; E83.42 Hypomagnesemia; K56.41 Fecal impaction; E87.8 Other disorders of electrolyte and fluid balance, not elsewhere classified; Z90.49 Acquired absence of other specified parts of digestive tract; Z80.0 Family history of malignant neoplasm of digestive organs; Z80.41 Family history of malignant neoplasm of ovary; Z80.8 Family history of malignant neoplasm of other organs or systems
CPT/HCPCS: 36415; 70450; 71045; 74018; 80048; 80053; 80305; 81001; 82948; 83036; 83605; 83735; 83880; 84100; 84436; 84443; 84484; 85025; 87040; 87081; 87086; 92610; 93005; 95816; 96365; 99285; C1758; J0696; J1815; J3475; J7030; J7060; Q0092